=== PATIENT | male | born 1940 | race Caucasian/White ===

== ENCOUNTER → 2024-11-06 | Outpatient (CLI) | payer MEDICARE, BC, SELFPAY ==
--- NOTE | 2024-11-06 16:20 | XR_ITS ---
Examination: CT abdomen and pelvis without contrast. Coronal 3-D reconstructions. Sagittal 2-D reconstructions. Date and time of exam:November 06, 2024 1823 hrs. Indications: Supraumbilical pain with abdominal aortic bruit, clinical diagnosis abdominal aortic aneurysm, status post aortoiliac stent 5 years ago CTDI: vol (mGy): 7.05 DLP: (mGycm): 480 Technique: Axial images of the abdomen have been obtained, 3 mm slice thickness Intravenous contrast material has not been administered. Low dose protocols were performed. One or more of the following dose reduction techniques were used; automated exposure control, adjustment of the mA and/or KV according to patient size, use of iterative reconstruction technique. Findings: 12 mm right lobe liver cyst Cholelithiasis No splenomegaly Extensive mesenteric pericaval periaortic lymphadenopathy Aorto iliac endoluminal stent, transverse dimension infrarenal abdominal aorta 5.7 cm No bowel obstruction Urinary bladder intact Fat-containing hernia defects No significant prostatomegaly Advanced disc narrowing L5-S1 Impression: Cholelithiasis Status post aorto iliac endoluminal stent Infrarenal abdominal aortic aneurysm dilatation 5.7 cm compared to 5.[address] study October 09, 2021 Extensive mesenteric and abdominal lymphadenopathy, differential would include metastatic lymphadenopathy, Hodgkin's disease, non-Hodgkin's lymphoma Recommend PET CT scan staging follow-up
== END | disposition home or self-care (01) ==
PROVIDERS: PCP Family Medicine; Referring Provider Family Medicine; Visit Provider Family Medicine
DX: K80.20 Calculus of gallbladder without cholecystitis without obstruction (principal); I71.43 Infrarenal abdominal aortic aneurysm, without rupture; R59.0 Localized enlarged lymph nodes; Z98.890 Other specified postprocedural states
CPT/HCPCS: 74176

== ENCOUNTER → 2024-11-08 | Outpatient (CLI) | payer MEDICARE, BC, SELFPAY ==
[2024-11-08 11:07] LABS: Basophils % (Auto) 1 % (0-2.5); Eosinophils # (Auto) 0.2 Thou/mm3 (0.0-0.5); Eosinophils % (Auto) 3 % (0-10); Hematocrit 39.3 % (41.0-53.0); Hemoglobin 13.1 g/dL (13.5-16.0); Immature Granulocytes % (Auto) 0 % (0-0); Immature Granulocytes Auto 0.02 Thou/mm3 (0.00-0.00); Lymphocytes # (Auto) 0.8 Thou/mm3 (1.0-4.8); Lymphocytes % (Auto) 14 % (10-50); Mean Corpuscular HGB Conc 33.3 g/dl (31.0-37.0); Mean Corpuscular Volume 90 fL (80-100); Monocytes # (Auto) 0.6 Thou/mm3 (0.0-0.8); Monocytes % (Auto) 12 % (0-12); Neutrophils # (Auto) 3.9 Thou/mm3 (1.8-7.7); Neutrophils % (Auto) 70 % (37-80); Nucleated Red Blood Cell % 0 /100 WBC (0); Platelet Count 324 Thou/mm3 (140-440); Red Blood Count 4.36 Miln/mm3 (4.50-5.90); White Blood Count 5.6 Thou/mm3 (3.8-10.6)
[2024-11-08 11:20] LABS: Alanine Aminotransferase 10 U/L (10-49); Albumin, Serum 4.2 gm/dL (3.4-4.8); Albumin/Globulin Ratio 1.8 (1.2-2.2); Alkaline Phosphatase 69 U/L (46-116); Anion Gap 8 (7-16); Aspartate Amino Transferase 15 U/L (0-34); BUN/Creatinine Ratio 17 Ratio (12-20); Bilirubin,Total 0.5 mg/dL (0.3-1.2); Blood Urea Nitrogen 15 mg/dL (9-23); Calcium 9.3 mg/dL (8.3-10.6); Calcium (Corrected) 9.3 mg/dL (8.5-10.1); Carbon Dioxide 29.9 mMol/L (20.0-31.0); Chloride 100 mMol/L (98-107); Creatinine (Component) 0.9 mg/dL (0.6-1.3); Globulin 2.3 gm/dL (2.3-3.5); Glucose 162 mg/dL (74-106); Osmolality,Calculated 280 (275-295); Potassium 4.5 mMol/L (3.4-5.1); Sodium 138 mMol/L (136-145); Total Protein 6.5 gm/dL (5.7-8.2); eGFR > 60 See Note
[2024-11-11 07:06] LABS: PSA, Free <0.10 ng/mL; PSA, Total <0.1 ng/mL (< OR = 4.0)
== END | disposition home or self-care (01) ==
PROVIDERS: PCP Family Medicine; Referring Provider Family Medicine; Visit Provider Family Medicine
DX: C61 Malignant neoplasm of prostate (principal)
CPT/HCPCS: 36415; 80053; 84153; 84154; 85025

== ENCOUNTER 2024-11-11 05:25 | Emergency (ER) | payer MEDICARE, BC, SELFPAY ==
[2024-11-11] VITALS (8 sets, daily range): BP systolic 109–137; BP diastolic 61–84; PULSE 68–108; RESP 16–20; TEMP 36.6–37.1; O2SAT 83–98; BMI 27.9
--- NOTE | 2024-11-11 05:29 | EKG_ITS ---
[facility] Test Date: 2024-11-11 Pat Name: NANI MILLAN Department: Room: - Gender: Male [employer] Operator: : 1940 Requested By: Michelet Mahoney Order Number: [id number] Reading MD: Michelet Mahoney Measurements Intervals [place] Rate: 116 P: MS: QRS: 15 QRSD: 92 T: 15 QT: 325 QTc: 453 Interpretive Statements ATRIAL FIBRILLATION WITH RAPID VENTRICULAR RESPONSE MODERATE ST DEPRESSION [0.05+ mV ST DEPRESSION] Compared to ECG 07/22/2018 11:20:32 ST (T wave) deviation now present Sinus bradycardia no longer present Sinus arrhythmia no longer present /store/S0/[id number]/ecg/[id number].pdf
--- NOTE | 2024-11-11 07:49 | PC.NURSE ---
Dr. Whitmore is bedside talking with pt.
--- NOTE | 2024-11-11 07:56 | PD.EDADULT ---
ED General RME/HPI General Chief complaint: Dizziness Stated complaint: DIZZINESS Arrival date/time: 11/11/24 05:25 RME / HPI RME / HPI narrative: Patient is a 84 years old male with PMH of CAD s/p CABG, HLD, HTN, chronic vertigo, COPD presented to the [facility] due to worsening dizziness. He reported that since yesterday his vertigo got worse and did not respond to meclizine as before. He denies any precipitating factors. He denies any drugs or alcohol use. He used to use home oxygen but ran out of it and did not refill. He is seen by cardiology. He denies any weakness in his extremities, chest pain or SOB. He reports feeling nauseous from vertigo. Related Data Home Medications ?Medication ?Instructions ?Recorded ?Confirmed finasteride 5 mg tablet (Proscar) 5 mg PO QDAY #0 tabs 06/21/15 11/01/23 tamsulosin 0.4 mg capsule (Flomax) 0.8 mg PO QDAY ##0 06/21/15 11/01/23 atorvastatin 80 mg tablet 80 mg PO QDAY 07/22/18 11/01/23 clopidogrel 75 mg tablet 75 mg PO DAILY 11/01/23 11/01/23 fluticasone fur. 100 mcg-umeclid 1 inh inhalation QDAY 11/01/23 11/01/23 62.5 mcg-vilant 25 mcg inhalat.powder (Trelegy Ellipta) isosorbide mononitrate 30 mg 30 mg PO DAILY 11/01/23 11/01/23 tablet,extended release 24 hr metoprolol succinate 50 mg 50 mg PO DAILY 11/01/23 11/01/23 tablet,extended release 24 hr nitroglycerin 0.4 mg sublingual 0.4 mg buccal PRN PRN Chest Pain 11/01/23 11/01/23 tablet ranolazine 500 mg tablet,extended 1,000 mg PO DAILY 11/01/23 11/01/23 release,12 hr Previous Rx's ?Medication ?Instructions ?Recorded azithromycin 250 mg tablet See Rx Instructions PO .COMPLEX #6 11/01/23 (Zithromax Z-Luis) tabs metformin 500 mg tablet 500 mg PO QDAY #30 tabs 11/01/23 lorazepam 0.5 mg tablet (Ativan) 0.5 mg PO BID PRN dizziness or 11/11/24 vertigo #7 tabs meclizine 25 mg tablet 50 mg (2 x 25 mg) PO BID PRN 11/11/24 dizziness #14 tabs Allergies Allergy/AdvReac Type Severity Reaction Status Date / Time Penicillins Allergy Severe Vomiting Verified 07/22/18 08:29 Review of Systems Review of Systems Systems Reviewed: All systems reviewed, normal except as documented ED Exam Narrative Physical exam: Gen: Well-developed and well-nourished elderly male. HEENT: NCAT, PERRLA, EOMI, MMM, anicteric conjunctivae. CVS: normal S1 and S2. RRR. Holosystolic murmur best heard over aortic area. Resp: CTA B/L. No rhonchi, rales, crackles or wheezing. Abd: soft, midly tender in RUQ, non-distended. BS+ in all 4 quadrants. MSK: Good ROM in BUE & BLE. No edema or rash. Neuro: CN II-XII grossly intact. Strength 5/5 in BUE & BLE. Alert and oriented x3. Psych: appropriate mood and affect. Course Course Course Narrative: Patient was given scopolamine patch and meclizine 50 mg, one hour later he reported minimal improvement. He was then given Lorazepam 0.5 mg orally and his vertigo returned to baseline. He was able to walk across the ED with no assistance. Quality Measures none Orders Category Date Time Status Blood glucose [Bedside Blood Glucose] NOW Care 11/11/24 05:29 Completed EKG (ED ONLY) *Do not use* NOW Care 11/11/24 05:29 Completed EKG (ED Only) Stat Exams 11/11/24 05:29 Draft LORazepam [Ativan] Med 11/11/24 10:02 Discontinued 0.5 mg PO X1 ONE Meclizine HCl [Antivert] Med 11/11/24 07:33 Discontinued 25 mg PO X1 ONE Meclizine HCl [Antivert] Med 11/11/24 07:50 Discontinued 50 mg PO X1 ONE Scopolamine [Transderm-Scop Patch] Med 11/11/24 07:33 Discontinued 1 mg TOP X1 ONE Vital Signs Vital signs: Vital Signs Temperature 98.8 F 11/11/24 05:31 Pulse Rate 108 H 11/11/24 05:31 Respiratory Rate 18 11/11/24 05:31 Blood Pressure 109/61 11/11/24 05:31 Pulse Oximetry (%) 95 11/11/24 05:31 Oxygen Delivery Method Room Air 11/11/24 05:31 [facility] Patient data External records reviewed:: [facility] previous records Clinical information provided by:: patient Social determinants that could affect healthcare access:: none Patient has the following chronic illnesses:: COPD, was previously prescribed home oxygen but ran out of it and never refilled. His saturation on room air was suboptimal and home oxygen was delivered to the ED. Chronic vertigo, patient ambulates with no walker however has high risk of fall, walker was prescribed for him and given in the ED. How is presenting disease/condition affected by chronic disease/condition?: caused by Evaluation data The following diagnostics were reviewed and interpreted by me:: EKG tracing(s) Lab and/or radiology exams considered but not ordered:: CT head was not ordered due to clinical impression of peripheral vertigo and low suspicion for CVA. Interpretation Summary: MAT on EKG. Medications Medications considered but not ordered:: Zofran, promethazine Medication administrations:: Medication Administration History Discontinued Medications Lorazepam (Lorazepam 0.5 Mg Tablet) 0.5 mg PO X1 ONE Stop: 11/11/24 10:03 Last Admin: 11/11/24 10:30 Dose: 0.5 mg Documented By: ED Meclizine HCl (Meclizine Hcl 25 Mg Tablet) 25 mg PO X1 ONE Stop: 11/11/24 07:34 Last Admin: 11/11/24 08:36 Dose: Not Given Documented By: ED Non-Admin Reason: Duplicate Medication on eMAR Meclizine HCl (Meclizine Hcl 25 Mg Tablet) 50 mg PO X1 ONE Stop: 11/11/24 07:51 Last Admin: 11/11/24 08:36 Dose: 50 mg Documented By: ED Scopolamine (Scopolamine 1 Mg Tdsy) 1 mg TOP X1 ONE Stop: 11/11/24 07:34 Last Admin: 11/11/24 08:36 Dose: 1 mg Documented By: ED Scopolamine 1mg patch, Meclizine 50 mg PO, Lorazepam 0.5 mg PO. Consultations Consultation(s) initiated? (list below): No Diagnosis Differential Diagnosis ED Complaint MDM: CVA, chronic peripheral vertigo, BPPV Most likely diagnosis given after review of the tests above:: chronic peripheral vertigo, symptoms flair. Admission Indicated Admission indicated?: not indicated Explain why admission is indicated or not indicated:: Patient's condition returned to baseline after treatment, he was prescribed medications at home and was recommended to follow up with PCP and possibly with neurology to continue management of his chronic vertigo. Admission Request Was there a request for admission?: No Disposition Plan Disposition Plan: Discharge Discharge Attestation Discharge Attestation: The patient and all family members were given an opportunity to ask questions and understood the discharge instructions. Discharge instructions specifically effects, indications for sooner follow up or return to the emergency department, and the expected course of current diagnosis. Patient condition: Stable Medical Decision Making Differential Diagnosis Differential Diagnosis: CVA, chronic peripheral vertigo, BPPV Discharge Plan Plan Patient Disposition: HOME (Self Care) Prescriptions/Referrals Prescriptions/Med Rec: New lorazepam [Ativan] 0.5 mg tablet 0.5 mg PO BID MDD 1 mg PRN (Reason: dizziness or vertigo) Qty: 7 0RF meclizine 25 mg tablet 50 mg PO BID MDD 100 mg PRN (Reason: dizziness) Qty: 14 0RF No Action tamsulosin [Flomax] 0.4 MG capsule,extended release 24hr 0.8 mg PO QDAY Qty: 0 finasteride [Proscar] 5 MG tablet 5 mg PO QDAY Qty: 0 atorvastatin 80 mg Tablet 80 mg PO QDAY clopidogrel 75 mg tablet 75 mg PO DAILY Patient Comments: TAKE 1 TABLET BY MOUTH ONCE DAILY FOR 90 DAYS nitroglycerin 0.4 mg tablet, sublingual 0.4 mg BUCCAL PRN MDD 3 PRN (Reason: Chest Pain) Patient Comments: DISSOLVE ONE TABLET UNDER THE TONGUE NEEDED FOR CHEST PAIN. DO NOT EXCEED MORE THAN 3 TIMES IN A DAY FOR 25 DAYS. ranolazine 500 mg tablet extended release 12 hr 1,000 mg PO DAILY Patient Comments: TAKE 1 TABLET BY MOUTH TWICE DAILY Trelegy Ellipta 100-62.5-25 mcg Blister With Device 1 inh INHALATION QDAY metoprolol succinate 50 mg tablet extended release 24 hr 50 mg PO DAILY Patient Comments: TAKE 1 TABLET BY MOUTH ONCE DAILY isosorbide mononitrate 30 mg tablet extended release 24 hr 30 mg PO DAILY Patient Comments: TAKE 1 TABLET BY MOUTH ONCE DAILY IN THE MORNING azithromycin [Zithromax Z-Luis] 250 mg tablet See Rx Instructions PO .COMPLEX Qty: 6 0RF Rx Instructions: For 250 mg dose pack: take 500 mg today (day 1), then 250 mg for 4 days (days 2-5) metformin 500 mg tablet 500 mg PO QDAY Qty: 30 0RF Referrals: Jameson Tucker MD [Primary Care Provider] - In 1 week Problem List Clinical Impression: Vertigo Patient/Caregiver Discharge Instructions Discharge Activity: walk with walker only and wear oxygen at all times Education Materials: ED Dizziness, Uncertain Cause Additional Instructions: Take Ativan 1 tab as needed up to 2 times a day for dizziness. Take meclizine 50 mg as needed up to 2 times a day for dizziness. Follow up with PCP within 1 week. Consider neurology referral for dizziness management. Return to the ED if your symptoms worsen or you have new or concerning issues. Print Language: Bengali Stand Alone Forms: [employer] Award Info., Patient Portal Info Letter
[2024-11-11] MEDS: MECLIZINE HCL 25 MG TABLET 50 MG PO (08:36)
[2024-11-11] MEDS: SCOPOLAMINE 1 MG TDSY TOP (08:36)
--- NOTE | 2024-11-11 08:39 | PC.CC ---
Pt is discharged in a chronic stable state and has been treated optimally and has other respiratory needs. Oxygen has been ordered due to low sat and dizziness. Dizziness creates mobility limitation that significantly impairs ability to participate in the patients activities of daily living either in their entirety, or in a reasonable time frame. Also the patient is able to safely use the walker and the patient?s mobility is sufficiently resolved with the use of the walker and cane has been ruled out.
--- NOTE | 2024-11-11 08:40 | PC.NURSE ---
Pt. here from home to room 7, pt. states he is always dizzy and takes Meclizine 25 mg po PRN, pt. states it has not been working. Pt. 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 states in the last year it has changed and he has an appointment on Wednesday to see what the plan is for it. Pt. states he was on home O2 and thought he didn't need it., pt. states when he sleeps without O2 now his oxygen drops to 80%. Pt. is on on O2 now via NC at 3L and pt. O2 is 97%. Pt. tolerating well. Pt. requests hot tea, made and given to pt. Offered warm blanket and pt. states no thank you.
--- NOTE | 2024-11-11 09:00 | PC.NURSE ---
Pt. states he uses the RR with no issues, pt. states he had a BM yesterday.
[2024-11-11] MEDS: LORazepam 0.5 MG TABLET PO (10:30)
--- NOTE | 2024-11-11 11:11 | PC.NURSE ---
Kate in pt.'s room talking with pt. and showing pt. how to use his home O2.
--- NOTE | 2024-11-11 11:25 | PC.NURSE ---
Pt. walking around ER with Dr. Hansen, pt. tolerating well.
== END 2024-11-11 12:40 | disposition home or self-care (01) ==
PROVIDERS: Emergency Provider Emergency Medicine; PCP Family Medicine
DX: R42 Dizziness and giddiness (principal); I48.91 Unspecified atrial fibrillation
CPT/HCPCS: 93005; 99283; A9270

== ENCOUNTER → 2024-11-29 | Outpatient (CLI) | payer MEDICARE, BC, SELFPAY ==
[2024-11-29 11:39] LABS: Glucose Estimated Average 123 mg/dL (80-131); Hemoglobin A1C 5.9 % Hgb (4.8-6.0)
[2024-11-29 11:48] LABS: T4 (Thyroxine) 8.4 mcg/dL (4.5-10.9)
[2024-11-29 11:54] LABS: Creatinine MALB Rnd Ur 214 mg/dL (30-125); Microalbumin Creat Ratio 13 mg/gCrea (<30); Microalbumin, Random Urine 28 mg/L (0-300)
[2024-11-29 11:57] LABS: Alanine Aminotransferase 9 U/L (10-49); Albumin, Serum 3.9 gm/dL (3.4-4.8); Albumin/Globulin Ratio 1.6 (1.2-2.2); Alkaline Phosphatase 65 U/L (46-116); Anion Gap 9 (7-16); Aspartate Amino Transferase 16 U/L (0-34); BUN/Creatinine Ratio 14 Ratio (12-20); Bilirubin,Total 0.8 mg/dL (0.3-1.2); Blood Urea Nitrogen 13 mg/dL (9-23); Calcium 9.1 mg/dL (8.3-10.6); Calcium (Corrected) 9.2 mg/dL (8.5-10.1); Carbon Dioxide 32.3 mMol/L (20.0-31.0); Cardiac Risk Estimate 2.9 RATIO (4.0-6.7); Chloride 98 mMol/L (98-107); Cholesterol 85 mg/dL (132-200); Creatinine (Component) 0.9 mg/dL (0.6-1.3); Globulin 2.4 gm/dL (2.3-3.5); Glucose 151 mg/dL (74-106); HDL Cholesterol 29 mg/dL (40-60); LDL Cholesterol,Calculated 41 mg/dL (0-130); Osmolality,Calculated 280 (275-295); Potassium 3.7 mMol/L (3.4-5.1); Sodium 139 mMol/L (136-145); Thyroid Stimulating Hormone 2.25 uIU/mL (0.55-4.78); Total Protein 6.3 gm/dL (5.7-8.2); Triglycerides 75 mg/dL (30-150); eGFR > 60 See Note
== END | disposition home or self-care (01) ==
LOC: COPL 10:37
PROVIDERS: PCP Family Medicine; Referring Provider Family Medicine; Visit Provider Family Medicine
DX: E03.9 Hypothyroidism, unspecified (principal); E11.9 Type 2 diabetes mellitus without complications
CPT/HCPCS: 36415; 80053; 80061; 82043; 82570; 83036; 84436; 84443

== ENCOUNTER → 2024-12-11 | Outpatient (CLI) | payer MEDICARE, BC, SELFPAY ==
--- NOTE | 2024-12-11 10:00 | XR_ITS ---
Examination: MRI brain without intravenous contrast. Date and time of exam: December 11, 2024 1118 hours Comparison January 29, 2010 INDICATIONS: Increasing memory loss 15 years Technique: Multiple axial and sagittal images of the brain obtained. Siemens high-resolution 1.5 Sue short bore scanners utilized. Sagittal sections, T1-weighted, TR 500, TE 14, are performed. Axial sections proton-density and T2-weighted have been obtained. Inversion recovery axial images, TR 9, 260, TE 111, TI 2500. Diffusion weighted images, axial sections, TR 4800, TE 128, B value 1000 Axial sections, ADC map, TR 4800, TE 128 Findings: Enlargement of the sella turcica is not present. The optic chiasm and infundibular are not remarkable. Prepontine and interpeduncular cisterns are not enlarged. There is no localized enlargement of the medulla or andi. Fourth ventricle and cerebellar tonsils appear normal in position. No subacute area of hemorrhage density is seen. Mass in the cerebellopontine angle region is not evident. Globes symmetrical. Orbital musculature including medial lateral rectus muscles do not exhibit abnormality. Diffusion-weighted images demonstrate no focus of restricted diffusion. Increased white matter signal moderate Mass effect upon the ventricular system is not identified. Impression: Negative for acute hemorrhage mass effect or midline shift No acute infarct Moderate chronic microvascular white matter change
== END | disposition home or self-care (01) ==
LOC: SMRI 10:17
PROVIDERS: Referring Provider Family Medicine; Visit Provider Family Medicine
DX: R90.82 White matter disease, unspecified (principal)
CPT/HCPCS: 70551

== ENCOUNTER → 2024-12-12 | Outpatient (CLI) | payer MEDICARE, BC, SELFPAY ==
--- NOTE | 2024-12-12 15:30 | XR_ITS ---
EXAMINATION: PET/CT FUSION SKULL TO THIGH EXAM DATE AND TIME: December 12, [address] abdomen pelvis November 06, 2024, CT chest November 01, 2023 INDICATIONS: Diagnosis malignant neoplasm prostate, diagnosis lymphadenitis CTDI:vol (mGy) 5.34 DLP: (mGycm) 487.78 PROCEDURE: 17.2 mCi FDG was administered intravenously To allow for distribution and uptake of radiotracer, the patient was allowed to rest quietly in a shielded room. Imaging was performed on an integrated 16-slice PET/CT scanner, with scanning from the skull base to the mid thigh. Serum blood glucose at the time of the injection was measured 99 mg/dL. CT scanning was performed without oral or intravenous contrast material. FINDINGS: Head and Neck: There is no hamilton hypermetabolism in the neck. 8mm hypermetabolic right supraclavicular lymph node Chest: 6 mm hypermetabolic high right paratracheal lymph node 20 mm hypermetabolic right pretracheal lymph node Mediolateral dimension ascending thoracic aorta 5.1 cm, mediolateral dimension descending thoracic aorta 4 cm Abdomen and Pelvis: Extensive periaortic pericaval and mesenteric lymphadenopathy surrounding the abdominal aorta, numerous intensely hypermetabolic lymph nodes extending into the mesentery, the transverse dimension of the bulk of mesenteric adenopathy is 10 cm Infrarenal abdominal aortic aneurysm transverse dimension 5.6 cm Hypermetabolic sigmoid colon without definite mass within the sigmoid colon Musculoskeletal: Marrow uptake is within normal range. IMPRESSION: Thoracic abdominal aortic aneurysms as above 8mm right supraclavicular hypermetabolic lymph node 6 mm hypermetabolic high right paratracheal lymph node 20 mm hypermetabolic right pretracheal lymph node Extensive bulky para-aortic pericaval and mesenteric hypermetabolic lymphadenopathy
== END | disposition home or self-care (01) ==
PROVIDERS: PCP Family Medicine; Referring Provider Family Medicine; Visit Provider Family Medicine
DX: I71.60 Thoracoabdominal aortic aneurysm, without rupture, unspecified (principal); R59.1 Generalized enlarged lymph nodes; C61 Malignant neoplasm of prostate
CPT/HCPCS: 78815; A9552

== ENCOUNTER → 2024-12-19 | Outpatient (CLI) | payer MEDICARE, BC, SELFPAY ==
[2024-12-19 10:47] LABS: Basophils % (Auto) 0 % (0-2.5); Eosinophils # (Auto) 0.1 Thou/mm3 (0.0-0.5); Eosinophils % (Auto) 1 % (0-10); Hematocrit 35.7 % (41.0-53.0); Hemoglobin 11.4 g/dL (13.5-16.0); Immature Granulocytes % (Auto) 1 % (0-0); Immature Granulocytes Auto 0.08 Thou/mm3 (0.00-0.00); Lymphocytes # (Auto) 0.6 Thou/mm3 (1.0-4.8); Lymphocytes % (Auto) 8 % (10-50); Mean Corpuscular HGB Conc 31.9 g/dl (31.0-37.0); Mean Corpuscular Hemoglobin 28.4 pg (25.0-35.0); Mean Corpuscular Volume 89 fL (80-100); Monocytes # (Auto) 0.8 Thou/mm3 (0.0-0.8); Monocytes % (Auto) 11 % (0-12); Neutrophils # (Auto) 5.3 Thou/mm3 (1.8-7.7); Neutrophils % (Auto) 78 % (37-80); Nucleated Red Blood Cell % 0 /100 WBC (0); Platelet Count 327 Thou/mm3 (140-440); RDW Standard Deviation 49.4 fL (35.1-43.9); Red Blood Count 4.01 Miln/mm3 (4.50-5.90); White Blood Count 6.8 Thou/mm3 (3.8-10.6)
[2024-12-19 11:09] LABS: Carcinoembryonic Antigen 1.3 ng/mL (0.0-5.0)
[2024-12-19 12:19] LABS: Alanine Aminotransferase 8 U/L (10-49); Albumin, Serum 3.6 gm/dL (3.4-4.8); Albumin/Globulin Ratio 1.6 (1.2-2.2); Alkaline Phosphatase 67 U/L (46-116); Anion Gap 9 (7-16); Aspartate Amino Transferase 18 U/L (0-34); BUN/Creatinine Ratio 16 Ratio (12-20); Blood Urea Nitrogen 13 mg/dL (9-23); Calcium 8.6 mg/dL (8.3-10.6); Calcium (Corrected) 8.9 mg/dL (8.5-10.1); Carbon Dioxide 30.6 mMol/L (20.0-31.0); Chloride 100 mMol/L (98-107); Creatinine (Component) 0.8 mg/dL (0.6-1.3); Globulin 2.2 gm/dL (2.3-3.5); Glucose 163 mg/dL (74-106); Osmolality,Calculated 283 (275-295); Potassium 3.6 mMol/L (3.4-5.1); Sodium 140 mMol/L (136-145); Total Protein 5.8 gm/dL (5.7-8.2); eGFR > 60 See Note
[2024-12-22 06:56] LABS: CA 19-9 Antigen* 5 U/mL (<34)
== END | disposition home or self-care (01) ==
LOC: SCTO 10:07
PROVIDERS: PCP Family Medicine; Referring Provider Radiology Therapeutic Radiology; Visit Provider Radiology Therapeutic Radiology
DX: C77.8 Secondary and unspecified malignant neoplasm of lymph nodes of multiple regions (principal)
CPT/HCPCS: 36415; 80053; 82378; 85025; 86301

== ENCOUNTER 2024-12-23 09:52 | Inpatient (IN) | payer MEDICARE, BC, SELFPAY ==
[2024-12-23] VITALS (9 sets, daily range): BP systolic 107–129; BP diastolic 63–81; PULSE 71–90; RESP 16–94; TEMP 36.4–37.1; O2SAT 93–96; BMI 24.3; BMI 19.7
--- NOTE | 2024-12-23 10:31 | PD.EDRME ---
Rapid Medical Screening Exam E Arrival date/time: 12/23/24 09:52 This is an 84-year-old male just given my water just to see what is going on with him and I states is fine just yeah that comes in with complaints of diarrhea. Patient currently being worked up for cancer with his primary provider. Patient has diffuse abdominal pain. Patient recently had a PET scan that close then lit up in areas in his thoracic cavity his clavicle area and in his abdomen and throat. Patient states that his primary provider is Dr Tucker. Patient was instructed by his primary provider to come to the emergency room to get IV fluids. Patient states that he is not eating very much because he has no appetite. Patient states that as soon as he tries to eat anything he has really bad diarrhea. Patient denies any nausea vomiting fever. Patient has history of open heart surgery in 2015, hyperlipidemia, high blood pressure I have greeted and performed a focused initial assessment of this patient. Initial appropriate labs ordered at this time. A comprehensive ED assessment and evaluation of the patient and analysis of all test and completion of medical decision making process will be conducted by additional ED provider. Chief Complaint: Nausea/Vomiting/Diarrhea Time Seen by Provider: 12/23/24 09:58 Vital signs: Vital Signs Temperature 98.1 F 12/23/24 10:14 Pulse Rate 90 12/23/24 10:14 Respiratory Rate 18 12/23/24 10:14 Blood Pressure 107/72 12/23/24 10:14 Pulse Oximetry (%) 96 12/23/24 10:14 Oxygen Delivery Method Room Air 12/23/24 10:14
[2024-12-23 10:57] LABS: Basophils % (Auto) 1 % (0-2.5); Eosinophils # (Auto) 0.1 Thou/mm3 (0.0-0.5); Eosinophils % (Auto) 2 % (0-10); Hematocrit 33.2 % (41.0-53.0); Hemoglobin 10.9 g/dL (13.5-16.0); Immature Granulocytes % (Auto) 1 % (0-0); Immature Granulocytes Auto 0.03 Thou/mm3 (0.00-0.00); Lymphocytes # (Auto) 0.6 Thou/mm3 (1.0-4.8); Lymphocytes % (Auto) 8 % (10-50); Mean Corpuscular HGB Conc 32.8 g/dl (31.0-37.0); Mean Corpuscular Hemoglobin 28.9 pg (25.0-35.0); Mean Corpuscular Volume 88 fL (80-100); Monocytes # (Auto) 0.7 Thou/mm3 (0.0-0.8); Monocytes % (Auto) 11 % (0-12); Neutrophils # (Auto) 5.2 Thou/mm3 (1.8-7.7); Neutrophils % (Auto) 78 % (37-80); Nucleated Red Blood Cell % 0 /100 WBC (0); Platelet Count 293 Thou/mm3 (140-440); RDW Standard Deviation 48.7 fL (35.1-43.9); Red Blood Count 3.77 Miln/mm3 (4.50-5.90); White Blood Count 6.6 Thou/mm3 (3.8-10.6)
[2024-12-23 11:09] LABS: INR 1.2 (0.9-1.3); Prothrombin Time 12.7 Seconds (9.0-12.2)
[2024-12-23 11:25] LABS: Alanine Aminotransferase 8 U/L (10-49); Albumin, Serum 3.7 gm/dL (3.4-4.8); Albumin/Globulin Ratio 1.5 (1.2-2.2); Alkaline Phosphatase 68 U/L (46-116); Anion Gap 6 (7-16); Aspartate Amino Transferase 23 U/L (0-34); BUN/Creatinine Ratio 17 Ratio (12-20); Bilirubin,Total 1.2 mg/dL (0.3-1.2); Blood Urea Nitrogen 12 mg/dL (9-23); C-Reactive Protein 8.8 mg/dL (0.0-0.9); Calcium 8.7 mg/dL (8.3-10.6); Calcium (Corrected) 8.9 mg/dL (8.5-10.1); Carbon Dioxide 30.7 mMol/L (20.0-31.0); Chloride 100 mMol/L (98-107); Creatinine (Component) 0.7 mg/dL (0.6-1.3); Estimated Creatinine Clearance 73.4 mL/min (>60); Globulin 2.5 gm/dL (2.3-3.5); Glucose 121 mg/dL (74-106); Lipase 25 U/L (12-53); Osmolality,Calculated 274 (275-295); Potassium 3.3 mMol/L (3.4-5.1); Sodium 137 mMol/L (136-145); Total Protein 6.2 gm/dL (5.7-8.2); eGFR > 60 See Note
--- NOTE | 2024-12-23 14:29 | EDNOTE_ITS ---
<Statement entered by Juliana Woody MD - 12/24/24 15:22> As co-signing physician, I was present and available for consult prn. I concur with the plan and care as documented by the midlevel provider. Nausea/Vomit./Diarrhea-RME/HPI General Chief complaint: Nausea/Vomiting/Diarrhea Stated complaint: VOMITING X4 WKS, AMS, WEAKNESS Time Seen by Provider: 12/23/24 09:58 Arrival date/time: 12/23/24 09:52 RME / HPI RME / HPI Narrative: 84-year-old male patient with significant history of hyperlipidemia, hypertension, prostate cancer in the past, status post chemotherapy, currently PSA is undetectable, currently being worked up for possible metastatic cancer, lymphoma or non-Hodgkin lymphoma, pending biopsy. Patient was seen by Dr. Padilla last week, and was waiting for CT-guided biopsy. Patient's symptoms this been ongoing for the last 3 to 4 months as weight loss, abdominal pain, no appetite, nausea, and vomiting. For the last 3 weeks patient is not eating very much because he has no appetite. He told me that every time he tries to eat something he will develop diarrhea right away. Patient denies any fever. Denies any other complaints. Patient called her PCP Dr Tucker, and was advised to go to the emergency room to to received IV fluids. Related Data Home Medications ?Medication ?Instructions ?Recorded ?Confirmed finasteride 5 mg tablet (Proscar) 5 mg PO QDAY #0 tabs 06/21/15 11/01/23 tamsulosin 0.4 mg capsule (Flomax) 0.8 mg PO QDAY ##0 06/21/15 11/01/23 atorvastatin 80 mg tablet 80 mg PO QDAY 07/22/1811/01 clopidogrel 75 mg tablet 75 mg PO DAILY 11/01/2310/14 fluticasone fur. 100 mcg-umeclid 1 inh inhalation QDAY 11/01/23 11/01/23 62.5 mcg-vilant 25 mcg inhalat.powder (Trelegy Ellipta) isosorbide mononitrate 30 mg 30 mg PO DAILY 11/01/23 0 11/01/23 tablet,extended release 24 hr metoprolol succinate 50 mg 50 mg PO DAILY 11/01/23 tablet,extended release 24 hr nitroglycerin 0.4 mg sublingual 0.4 mg buccal PRN PRN Chest Pain 11/01/23 11/01/23 tablet ranolazine 500 mg tablet,extended 1,000 mg PO DAILY 11/01/23 release,12 hr Previous Rx's ?Medication ?Instructions ?Recorded azithromycin 250 mg tablet See Rx Instructions PO .COM PLEX #6 11/01/23 (Zithromax Z-Luis) tabs metformin 500 mg tablet 500 mg PO QDAY #30 tabs 10/14 06/06 lorazepam 0.5 mg tablet (Ativan) 0.5 mg PO BID PRN diz ziness or 11/11/24 vertigo #7 tabs meclizine 25 mg tablet 50 mg (2 x 25 mg) PO BID PRN 11/11/24 dizziness #14 tabs Allergies Allergy/AdvReac Type Severity Reaction Status Date / Time Penicillins Allergy Severe Vomiting Verified 12/23/24 09:55 Review of Systems Review of Systems Narrative Review of Systems: Review of system reviewed and within normal limits except mentioned in HPI ED Exam Narrative Physical exam: VITAL SIGNS: Reviewed. GENERAL APPEARANCE: Alert and interactive, follows commands, no acute distress, HEAD AND FACE: Non-traumatic. ENT: PERRL, pink conjunctivitis, eyelid no trauma, Mucous membrane dry NECK: Supple, nontender, no nuchal rigidity. CHEST: No tenderness, no crepitus, no paradoxical movement, no retractions. LUNGS: Clear, well ventilated, symmetric, no rales, no wheezing, no ronchi, no stridor, good breath sounds bilaterally. HEART: Regular rate, regular rhythm, no murmur, no gallops. ABDOMEN: Soft, positive bowel sounds, nondistended, no guarding, nontender, no rebound, no masses, RECTAL: Deferred. GENITAL: Deferred. NEUROLOGICAL: Gross motor function intact sensory function intact, Appropriate for age. MUSCULOSKELETAL: low back nontender, full range of motion. EXTREMITIES: Nontender, full range of motion. SKIN: Color pink, dry, no rash, no lacerations, no abrasions, no contusions. LYMPHATICS: Deferred. Course Quality Measures none Orders Category Date Time Status COVID-19 Screening Questionnaire NOW Care 12/23/24 16:43 Active Decision to Admit X1 Care 12/23/24 16:43 Active Insert IV NOW Care 12/23/24 15:08 Active Consult to Oncology Stat Cons 12/23/24 16:19 Ordered CBC Stat Lab 12/23/24 10:44 Completed CRP [C-Reactive Protein] Stat Lab 12/23/24 10:44 Completed Comprehensive Metabolic Panel Stat Lab 12/23/24 10:44 Completed Lipase Stat Lab 12/23/24 10:44 Completed PT [Prothrombin Time with INR] Stat Lab 12/23/24 10:44 Completed Type and Screen Stat Lab 12/23/24 10:44 Completed Urinalysis, C/S if Indicated Stat Lab 12/23/24 15:38 Completed Morphine Inj Med 12/23/24 14:23 Discontinued 2 mg IVP X1 ONE Ondansetron Inj [Zofran Inj] Med 12/23/24 14:23 Discontinued 4 mg IV X1 ONE Ringers Lactated 1000 ml [Lactated Ringers] 1,000 ml Med 12/23/24 14:23 Discontinued IV 999 mls/hr Ringers Lactated 1000 ml [Lactated Ringers] 1,000 ml Med 12/23/24 15:26 Discontinued IV 999 mls/hr Vital Signs Vital signs: Vital Signs Temperature 98.1 F 12/23/24 10:14 Pulse Rate 90 12/23/24 10:14 Respiratory Rate 18 12/23/24 10:14 Blood Pressure 107/72 12/23/24 10:14 Pulse Oximetry (%) 96 12/23/24 10:14 Oxygen Delivery Method Room Air 12/23/24 10:14 Nausea/Vomiting/Diarrhea MDM Narrative MDM Narrative:: 84-year-old male patient with significant history of hyperlipidemia, hypertension, prostate cancer in the past, status post chemotherapy, currently P SA is undetectable, currently being worked up for possible metastatic cancer, lymphoma or non-Hodgkin lymphoma, pending biopsy. Patient was seen by Dr. Padilla last week, and was waiting for CT-guided biopsy. Patient's symptoms this been ongoing for the last 3 to 4 months as weight loss, abdominal pain, no appetite, nausea, and vomiting. For the last 3 weeks patient is not eating very much because he has no appetite. He told me that every time he tries to eat something he will develop diarrhea right away. Patient denies any fever. Denies any other complaints. Patient called her PCP Dr Caitlin, and was advised to go to the emergency room to to received IV fluids. Patient's laboratory workup all came back with slight anemia of 10.9 and hematocrit of 33.2. Potassium was noted to be 3.3. CRP was noted to be 8.8. Urinalysis no UTI I was able to talk to Dr. Padilla, patient's oncologist, who told me to admit the patient for CT-guided biopsy this coming Wednesday. Plan of care discussed with the patient who is very happy that he will get admitted so that he can have biopsy soon. Patient data External records reviewed:: None Clinical information provided by:: patient Social determinants that could affect healthcare access:: none Patient has the following chronic illnesses:: None How is presenting disease/condition affected by chronic disease/condition?: exacerbated by Evaluation data The following diagnostics were reviewed and interpreted by me:: lab results Lab and/or radiology exams considered but not ordered:: None Interpretation Summary: See results in MDM Medications / Prescriptions Medications / Prescriptions considered but not ordered:: None Medication administrations:: Medication Administration History Discontinued Medications Lactated Ringer's (Lactated Ringers) 1,000 mls @ 999 mls/hr IV .Q1H1M ONE Stop: 12/23/24 15:23 Last Infusion: 12/23/24 15:49 Dose: Infused Documented By: Admin: 12/23/24 15:09 Dose: 999 mls/hr Documented By: VALERIE Lactated Ringer's (Lactated Ringers) 1,000 mls @ 999 mls/hr IV .Q1H1M ONE Stop: 12/23/24 16:26 Last Infusion: 12/23/24 17:07 Dose: Infused Documented By: Admin: 12/23/24 15:55 Dose: 999 mls/hr Documented By: VALERIE Morphine Sulfate (Morphine Sulf Inj 10 Mg/Ml Vial) 2 mg IVP X1 ONE Stop: 12/23/24 14:24 Last Admin: 12/23/24 15:11 Dose: 2 mg Documented By: VALERIE Ondansetron HCl (Ondansetron Inj 2 Mg/Ml Inj 2 Ml) 4 mg IV X1 ONE; Protocol Stop: 12/23/24 14:24 Last Admin: 12/23/24 15:09 Dose: 4 mg Documented By: VALERIE IV fluids, Zofran and morphine Consultations Consultation(s) initiated? (list below): Yes Consultation #1 (Physician, Specialty, Details): Dr. Valerie Duckworth, oncologist, thank you Dr. Padilla Diagnosis Nausea Differential Diagnosis: dehydration and other (Failure thrive, suspect malignancy) Most likely diagnosis given after review of the tests above:: Failure to thrive, suspect malignancy pending biopsy Admission Indicated Admission indicated?: indicated Admission Request Was there a request for admission?: Yes Admission Attestation Admission request attestation: Discussed case with [Dr Carrillo] from Hospitalist service regarding admission. Discussed patients ED course, exam findings, labs, and radiology results. The Hospitalist [agrees] to accept the patient for admission. Disposition Plan Disposition Plan: Admit Discharge Plan Plan Patient Disposition: Admit Acute Care w/in Hospital Disposition Comment: Stable Prescriptions/Referrals Prescriptions/Med Rec: No Action tamsulosin [Flomax] 0.4 MG capsule,extended release 24hr 0.8 mg PO QDAY Qty: 0 finasteride [Proscar] 5 MG tablet 5 mg PO QDAY Qty: 0 atorvastatin 80 mg Tablet 80 mg PO QDAY clopidogrel 75 mg tablet 75 mg PO DAILY Patient Comments: TAKE 1 TABLET BY MOUTH ONCE DAILY FOR 90 DAYS nitroglycerin 0.4 mg tablet, sublingual 0.4 mg BUCCAL PRN MDD 3 PRN (Reason: Chest Pain) Patient Comments: DISSOLVE ONE TABLET UNDER THE TONGUE NEEDED FOR CHEST PAIN. DO NOT EXCEED MORE THAN 3 TIMES IN A DAY FOR 25 DAYS. ranolazine 500 mg tablet extended release 12 hr 1,000 mg PO DAILY Patient Comments: TAKE 1 TABLET BY MOUTH TWICE DAILY Trelegy Ellipta 100-62.5-25 mcg Blister With Device 1 inh INHALATION QDAY metoprolol succinate 50 mg tablet extended release 24 hr 50 mg PO DAILY Patient Comments: TAKE 1 TABLET BY MOUTH ONCE DAILY isosorbide mononitrate 30 mg tablet extended release 24 hr 30 mg PO DAILY Patient Comments: TAKE 1 TABLET BY MOUTH ONCE DAILY IN THE MORNING azithromycin [Zithromax Z-Luis] 250 mg tablet See Rx Instructions PO .COMPLEX Qty: 6 0RF Rx Instructions: For 250 mg dose pack: take 500 mg today (day 1), then 250 mg for 4 days (days 2-5) metformin 500 mg tablet 500 mg PO QDAY Qty: 30 0RF lorazepam [Ativan] 0.5 mg tablet 0.5 mg PO BID MDD 1 mg PRN (Reason: dizziness or vertigo) Qty: 7 0RF meclizine 25 mg tablet 50 mg PO BID MDD 100 mg PRN (Reason: dizziness) Qty: 14 0RF Referrals: Jameson Tucker MD [Primary Care Provider] - In 1 week Problem List Clinical Impression: Adult failure to thrive Patient/Caregiver Discharge Instructions Print Language: [place]an Stand Alone Forms: [employer] Award Info., Patient Portal Info Letter
[2024-12-23] MEDS: ONDANSETRON INJ 2 MG/ML INJ 2 ML 4 MG IV (15:09)
[2024-12-23] MEDS: RINGERS LACTATED 1000 ML 1,000 ML 999 ML IV ×2 (15:09→15:55)
[2024-12-23] MEDS: MORPHINE SULF INJ 10 MG/ML VIAL 2 MG IVP (15:11)
[2024-12-23 15:45] LABS: Collection Type, Urine Voided
[2024-12-23 15:50] LABS: Bilirubin,Urine Negative (Negative); Blood,Urine Negative (Negative); Clarity,Urine Clear (Clear/Hazy); Color,Urine Yellow (Lt Yel-Yel); Culture Indicated,Urine Not Indicated; Glucose, Urine Negative (Negative); Ketones,Urine Negative (Negative); Leukocyte Esterase,Urine Negative (Negative); Nitrite,Urine Negative (Negative); PH,Urine 6.5 (5.0-7.0); Protein,Urine Negative (Neg - Trace); RBC,Urine 1 /hpf (0-3); Specific Gravity,Urine 1.011 (1.001-1.035); Squamous Epithelial Cell,Urine < 1 /hpf (0-5); Urobilinogen,Urine Negative mg/dL (0.0-1.0); WBC,Urine 1 /hpf (0-5)
--- NOTE | 2024-12-23 18:30 | PD.RESHP ---
Documentation for date of: 12/23/24 HPI History of Present Illness Chief complaint: Poor p.o. intake, unintentional weight loss History of present illness: Mr. Johnston is a 84-year-old male with past medical history of coronary artery disease status post CABG, hyperlipidemia, hypertension, chronic vertigo, COPD, prostate cancer status post chemotherapy who presented to [facility] emergency department on with a chief complaint of diarrhea. Patient reported that he has been having diarrhea for the last month, reports having poor appetite decreased p.o. intake and significant unintentional weight loss of about 20 pounds in the last 1 month. Patient complains of being unable to keep food down, reports that he is barely able to eat anything, reports having diarrhea immediately after consumption of food. He also complains of night sweats on and off, denies any fevers. Patient reports that he was referred from his primary care physician Dr. Tucker to for workup had CT abdomen pelvis revealing cholelithiasis, infrarenal AAA and extensive mesenteric abdominal lymphadenopathy suggestive of lymphoma. Patient was evaluated by Dr. Padilla and had a PET scan which revealed hypermetabolic adenopathy involving periodic pericaval mesenteric areas along the right peritracheal high right paratracheal and right supraclavicular node. Patient did have unremarkable PSA and workup outpatient. ED Course: ED Vitals: ED vitals significant for on presentation blood pressure 107/72, heart rate 90, respirate rate 18, temp 98.1, O2 sat 96 on room air ED Labs: ED labs on presentation show RBC 3.77, hemoglobin 10.9, hematocrit 33.2, potassium 3.3, chloride 100, bicarb 30.7, creatinine 0.7, GFR more than 60, glucose 121, CRP 8.8 ED Imaging: No imaging done in ED ED Treatment:Patient was given LR 1 L bolus, Zofran 4 mg x 1, morphine 2 mg x 1 another LR liter bolus in the emergency department Review of Systems Review of Systems Narrative Review of Systems: ROS: -CONSTITUTIONAL: Positive for weight loss and chills. Denies fever. -HEENT: Denies changes in vision and hearing. -RESPIRATORY: Denies SOB and cough. -CV: Denies palpitations and Chest Pain. -GI: Denies abdominal pain, nausea, vomiting,constipation and positive for diarrhea and significant weight loss. -: Denies dysuria and urinary frequency. -MSK: Denies myalgia and joint pain. -SKIN: Denies rash and pruritus. -NEUROLOGICAL: Denies headache and syncope. -PSYCHIATRIC: Denies recent changes in mood. Denies anxiety and depression. Past Medical History Past Medical History Comments PMH COMMENT: PMH: Positive for coronary artery disease status post CABG, hyperlipidemia, hypertension, chronic vertigo, COPD, prostate cancer status post chemotherapy PSHx: Allergies: Penicillin?vomiting Social history: -Smoking: Positive for smoking for about 4 years in the past -Alcohol Use: Denies -Illicit Drug Use: Denies -Occupation: Retired, [employer]. Family History: Positive for family history of lung cancer in father and skin cancer in mother. Exam Vital Signs Temp Pulse Resp BP Pulse Ox O2 Del Method 98.1 F 88 16 129/81 95 Room Air 12/23/24 15:59 12/23/24 15:59 12/23/24 15:59 12/23/24 15:59 12/23/24 15:59 12/23/24 15:59 Narrative Exam Physical Exam General: Awake and in no acute distress. Conversational and non-toxic appearing. HEENT: Normocephalic, atraumatic, mucous membranes moist. Heart: Regular rate and rhythm, no murmurs. Lungs: Clear to auscultation with no wheezing or crackles. Abdomen: Soft, nondistended, nontender, positive bowel sounds. ?No guarding or rebound tenderness. Neurologic: Alert and oriented x3, no gross neurological deficit, and patient able to move all 4 extremities. Extremities: No edema. Skin: No rash or ecchymoses. Results: Labs 12/26/24 05:18 12/26/24 05:18 Labs: Short CBC 12/23/24 Range/Units 10:44 WBC 6.6 (3.8-10.6) Thou/mm3 Hgb 10.9 L (13.5-16.0) g/dL Hct 33.2 L (41.0-53.0) % Plt Count 293 D (140-440) Thou/mm3 BMP 12/23/24 10:44 Sodium 137 Potassium 3.3 L Chloride 100 Carbon Dioxide 30.7 BUN 12 Creatinine 0.7 Glucose 121 H Calcium 8.7 Liver Function 12/23/24 Range/Units 10:44 Total Bilirubin 1.2 (0.3-1.2) mg/dL AST 23 (0-34) U/L ALT 8 L (10-49) U/L Alkaline Phosphatase 68 (46-116) U/L Albumin 3.7 (3.4-4.8) gm/dL Urine 12/23/24 Range/Units 15:38 Urine Color Yellow (Lt Yel-Yel) Urine Clarity Clear (Clear/Hazy) Urine pH 6.5 (5.0-7.0) Ur Specific [place] 1.011 (1.001-1.035) Urine Protein Negative (Neg - Trace) Urine Glucose (UA) Negative (Negative) Quality Measures Quality Measures none Advance care planning discussed with:: patient Medications Home Medications and Allergies Home Medications ?Medication ?Instructions ?Recorded ?Confirmed ?Type finasteride 5 mg tablet (Proscar) 5 mg PO QDAY #0 tabs 06/21/15 12/23/24 History tamsulosin 0.4 mg capsule (Flomax) 0.8 mg PO QDAY ##0 06/21/15 12/23/24 History atorvastatin 80 mg tablet 80 mg PO QDAY 07/22/18 12/23/24 History clopidogrel 75 mg tablet 75 mg PO DAILY 11/01/23 12/23/24 History metoprolol succinate 50 mg 50 mg PO DAILY 11/01/23 12/23/24 History tablet,extended release 24 hr nitroglycerin 0.4 mg sublingual 0.4 mg buccal PRN PRN Chest Pain 11/01/23 12/26/24 History tablet ranolazine 500 mg tablet,extended 1,000 mg PO DAILY 11/01/23 12/23/24 History release,12 hr ezetimibe 10 mg tablet 10 mg PO QDAY 12/23/24 12/23/24 History gabapentin 300 mg capsule 300 mg PO TID 12/23/24 12/23/24 History hydrocodone 5 mg-acetaminophen 325 1 tab PO Q6H PRN pain 12/23/24 12/23/24 History mg tablet Allergies Allergy/AdvReac Type Severity Reaction Status Date / Time Penicillins Allergy Severe Vomiting Verified 12/23/24 09:55 Visit Medications Acetaminophen (Acetaminophen 325 Mg Tablet) 650 mg PO Q6H PRN PRN Reason: Mild Pain (1-3) & Fever >101.5 Stop: 01/22/25 18:10 Hydrocodone Bitart/Acetaminophen (Hydrocodone/Apap 5/325 Tablet) 1 tab PO Q6HR PRN PRN Reason: PAIN SCALE 4-10(Mod-Sev Stop: 12/28/24 18:24 Albuterol/Ipratropium (Albuterol/Ipratropium (Duoneb) Rt Fanny 3 Ml Nebu) 3 ml INH Q4HRRT PRN PRN Reason: SOB/Wheeze Stop: 01/22/25 18:59 Finasteride (Finasteride 5 Mg Tablet) 5 mg PO QDAY [facility] Stop: 01/23/25 08:59 Gabapentin (Gabapentin 100 Mg Capsule) 300 mg PO TID [facility] Stop: 01/22/25 21:59 Heparin Sodium (Porcine) (Heparin Sod Inj 5000 Unit/Ml Vial) 5,000 unit SC Q12HR PEPPER Stop: 01/06/25 18:29 Lactated Ringer's (Lactated Ringers) 1,000 mls @ 70 mls/hr IV .[id number] PEPPER Stop: 01/22/25 18:14 Ondansetron HCl (Ondansetron Inj 2 Mg/Ml Inj 2 Ml) 4 mg IV Q6H PRN; Protocol PRN Reason: NAUSEA OR VOMITING Stop: 01/22/25 18:10 Discontinued Medications Lactated Ringer's (Lactated Ringers) 1,000 mls @ 999 mls/hr IV .Q1H1M ONE Stop: 12/23/24 15:23 Last Infusion: 12/23/24 15:49 Dose: Infused Lactated Ringer's (Lactated Ringers) 1,000 mls @ 999 mls/hr IV .Q1H1M ONE Stop: 12/23/24 16:26 Last Infusion: 12/23/24 17:07 Dose: Infused Morphine Sulfate (Morphine Sulf Inj 10 Mg/Ml Vial) 2 mg IVP X1 ONE Stop: 12/23/24 14:24 Last Admin: 12/23/24 15:11 Dose: 2 mg Ondansetron HCl (Ondansetron Inj 2 Mg/Ml Inj 2 Ml) 4 mg IV X1 ONE; Protocol Stop: 12/23/24 14:24 Last Admin: 12/23/24 15:09 Dose: 4 mg Potassium Chloride (Potassium Chloride 20 Meq Tabcr) 40 meq PO X1 ONE Stop: 12/23/24 18:23 Assessment & Plan Plan Assessment and plan: Summary: Mr. Johnston is a 84-year-old male with past medical history of coronary artery disease status post CABG, hyperlipidemia, hypertension, chronic vertigo, COPD, prostate cancer status post chemotherapy who presented to [facility] emergency department on with a chief complaint of diarrhea. Patient reported that he has been having diarrhea for the last month, reports having poor appetite decreased p.o. intake and significant unintentional weight loss of about 20 pounds in the last 1 month. Patient is admitted to hospital for further workup. #Chronic diarrhea #Unintentional weight loss #Poor p.o. intake Patient has chronic diarrhea for the last month, reports having poor appetite decreased p.o. intake and significant unintentional weight loss of about 20 pounds in the last 1 month. Was given 2 L bolus in ED, CRP 8.8 Plan: -IV Maintenance fluid -Stool WBC -Stool Culture -Follow ESR -Cardiac diet, monitor Bowel movement -Will consider supervisor accounts receivable consult in AM -Zofran PRN for nausea #Electrolyte abnormality #Hypokalemia Potassium 3.3 on presentation -Correct and replace electolytes as needed #Acute kidney injury BUN 12, Cr 0.7, GFR >60, possible LAUREN considering significant weight loss/muscle loss -IV Maintenance fluid -Avoid Nephrotoxic agents -Follow renal panel in AM #Thoracic aortic aneurysm #Infrarenal abdominal aorta aneurysm CT abdomen pelvis 11/06/2024 shows aortoiliac endoluminal stent, infrarenal abdominal aorta aneurysm dilatation 5.7 cm PET scan shows medial atrial dimension ascending thoracic aorta 5.1 cm, medial atrial dimension descending thoracic aorta 4 cm - Patient follows Dr. Johnson tar distillation supervisor outpatient - Maintain strict blood pressure control #8 mm right supraclavicular hypermetabolic lymph node #6 mm hypermetabolic high right paratracheal lymph node #20 mm hypermetabolic right pretracheal lymph node #Extensive bulky para-aortic pericaval and mesenteric hypermetabolic lymphadenopathy. #History of prostate cancer status postchemotherapy Concern of lymphoma - Oncology consulted, appreciate recommendations #Hypertension #Hyperlipidemia #Coronary artery disease status post CABG #COPD Pending Med rec. Blood Pressure soft, will monitor Duoneb PRN DVT prophylaxis: Heparin GI prophylaxis: Not indicated Diet:Cardiac Lines: Peripheral IV Code status: Full Code Case discussed with Attending Dr. Walton. Zuleika Tian PGY1 Disclaimer: This note was dictated by speech recognition. Minor errors in professional driver may be present due to voice recognition software. Attending Provider Attestation/Addendum Patient seen and examined at bedside with resident. Agree with assessment and plan as dictated above. Admit patient for further management of dehydration and unintentional weight loss, chronic diarrhea. Channing Walton MD
[2024-12-23] MEDS: POTASSIUM CHLORIDE 20 mEq TABCR 40 MEQ PO (18:40)
[2024-12-23] MEDS: RINGERS LACTATED 1000 ML 1,000 ML 70 ML IV (18:43)
[2024-12-23 20:23] LABS: INR 1.2 (0.9-1.3); Partial Thromboplastin Time 31.9 Seconds (22.0-36.0)
--- NOTE | 2024-12-23 20:55 | PC.NURSE ---
Pt came in from ED, alert and oriented, no C/O of pain at this time. Call light at bedside. Will continue to monitor.
[2024-12-23] MEDS: GABAPENTIN 100 MG CAPSULE 300 MG PO (21:22)
--- NOTE | 2024-12-23 21:44 | EKG_ITS ---
[facility] Test Date: 2024-12-23 Pat Name: NANI MILLAN Department: Room: S363A Gender: Male Schedule Analyst: KAYCEE : 1940 Requested By: Katt Rodriguez Order Number: [id number] Reading MD: Katt Rodriguez Measurements Intervals [place] Rate: 84 P: [place]: QRS: 56 QRSD: 90 T: 11 QT: 400 QTc: 476 Interpretive Statements ATRIAL FIBRILLATION WITH ABERRANT CONDUCTION OR VENTRICULAR PREMATURE COMPLEXES ABNORMAL RHYTHM ECG Compared to ECG 11/11/2024 05:36:52 Ventricular premature complex(es) now present Aberrant conduction of supraventricular beat(s) now present ST (T wave) deviation no longer present /store/S0/[id number].pdf
[2024-12-23] MEDS: POTASSIUM CHL 10 mEq IVPB 10 MEQ/100 ML BAG 100 MEQ IV ×2 (22:14→23:09)
[2024-12-24] VITALS (14 sets, daily range): BP systolic 123–154; BP diastolic 7–82; PULSE 63–88; RESP 14–96; TEMP 36.1–36.7; O2SAT 92–96
[2024-12-24] MEDS: POTASSIUM CHL 10 mEq IVPB 10 MEQ/100 ML BAG 100 MEQ IV ×2 (00:09→01:20)
[2024-12-24] MEDS: GABAPENTIN 100 MG CAPSULE 300 MG PO ×3 (05:01→21:22)
[2024-12-24 05:52] LABS: Basophils % (Auto) 1 % (0-2.5); Eosinophils # (Auto) 0.2 Thou/mm3 (0.0-0.5); Eosinophils % (Auto) 4 % (0-10); Hematocrit 30.6 % (41.0-53.0); Immature Granulocytes % (Auto) 1 % (0-0); Immature Granulocytes Auto 0.03 Thou/mm3 (0.00-0.00); Lymphocytes # (Auto) 0.7 Thou/mm3 (1.0-4.8); Lymphocytes % (Auto) 15 % (10-50); Mean Corpuscular HGB Conc 32.7 g/dl (31.0-37.0); Mean Corpuscular Hemoglobin 29.2 pg (25.0-35.0); Mean Corpuscular Volume 89 fL (80-100); Monocytes # (Auto) 0.6 Thou/mm3 (0.0-0.8); Monocytes % (Auto) 13 % (0-12); Neutrophils # (Auto) 3.2 Thou/mm3 (1.8-7.7); Neutrophils % (Auto) 67 % (37-80); Nucleated Red Blood Cell % 0 /100 WBC (0); Platelet Count 336 Thou/mm3 (140-440); RDW Standard Deviation 49.5 fL (35.1-43.9); Red Blood Count 3.43 Miln/mm3 (4.50-5.90); White Blood Count 4.7 Thou/mm3 (3.8-10.6)
[2024-12-24 06:23] LABS: Sed Rate (ESR) 28 mm/hr (0-20)
[2024-12-24 06:31] LABS: Alanine Aminotransferase 8 U/L (10-49); Albumin, Serum 3.2 gm/dL (3.4-4.8); Albumin/Globulin Ratio 1.4 (1.2-2.2); Alkaline Phosphatase 61 U/L (46-116); Anion Gap 7 (7-16); Aspartate Amino Transferase 20 U/L (0-34); BUN/Creatinine Ratio 12 Ratio (12-20); Bilirubin,Total 0.8 mg/dL (0.3-1.2); Blood Urea Nitrogen 6 mg/dL (9-23); Calcium 8.4 mg/dL (8.3-10.6); Carbon Dioxide 28.2 mMol/L (20.0-31.0); Chloride 107 mMol/L (98-107); Creatinine (Component) 0.5 mg/dL (0.6-1.3); Estimated Creatinine Clearance 94.3 mL/min (>60); Globulin 2.3 gm/dL (2.3-3.5); Glucose 91 mg/dL (74-106); Magnesium 2.1 mg/dL (1.6-2.6); Osmolality,Calculated 280 (275-295); Sodium 142 mMol/L (136-145); Thyroid Stimulating Hormone 2.57 uIU/mL (0.55-4.78); Total Protein 5.5 gm/dL (5.7-8.2); eGFR > 60 See Note
[2024-12-24] MEDS: FINASTERIDE 5 MG TABLET PO (08:04)
[2024-12-24] MEDS: METOPROLOL SUCCINATE XL 25 MG TABCR 50 MG PO (08:04)
[2024-12-24 08:36] LABS: INR 1.1 (0.9-1.3); Partial Thromboplastin Time 31.5 Seconds (22.0-36.0); Prothrombin Time 12.4 Seconds (9.0-12.2)
[2024-12-24] MEDS: HEPARIN SOD INJ 5000 UNIT/ML VIAL 3650 UNIT IV (09:54)
[2024-12-24] MEDS: Heparin/D5w 25K 250 ML Ivpb 25,000 UNIT/250 ML BAG 7.272 UNIT IV (09:55)
[2024-12-24] MEDS: RINGERS LACTATED 1000 ML 1,000 ML 70 ML IV (09:59)
--- NOTE | 2024-12-24 10:56 | PD.RESPRO ---
Documentation for date of: 12/24/24 Subjective Subjective Interval history: Patient seen and examined at bedside. Patient has atrial fibrillation episodes on telemetry. Old EKGs reviewed, patient did have atrial fibrillation in November. Patient is unaware of the diagnosis of atrial fibrillation, cardiology consulted. Patient will be started on amiodarone 200 mg p.o. twice daily, heparin drip. Will continue metoprolol succinate 50 mg daily. Otherwise patient is stable, complains of being tired, reports was not able to sleep well, uses melatonin at home. Will start patient on melatonin at bedtime. Patient will be scheduled for possible biopsy of lymph node for further malignancy workup in a.m. by interventional radiology. Exam Vital Signs Temp Pulse Resp BP Pulse Ox O2 Del Method 97.8 F 63 20 123/74 92 L Room Air 12/24/24 04:00 12/24/24 08:04 12/24/24 04:00 12/24/24 08:04 12/24/24 04:00 12/24/24 04:00 Narrative Exam Physical Exam General: Awake and in no acute distress. Conversational and non-toxic appearing. HEENT: Normocephalic, atraumatic, mucous membranes moist. Heart: Regular rate and rhythm, no murmurs. Lungs: Clear to auscultation with no wheezing or crackles. Abdomen: Soft, nondistended, nontender, positive bowel sounds. ?No guarding or rebound tenderness. Neurologic: Alert and oriented x3, no gross neurological deficit, and patient able to move all 4 extremities. Extremities: No edema. Skin: No rash or ecchymoses. Objective Labs 12/24/24 05:00 12/24/24 05:00 Labs: Laboratory Results - last 24 hr 12/23/24 12/23/24 12/23/24 10:44 15:38 19:16 WBC 6.6 RBC 3.77 L Hgb 10.9 L Hct 33.2 L MCV 88 MCH 28.9 MCHC 32.8 RDW Std Deviation 48.7 H Plt Count 293 D Neut % (Auto) 78 Lymph % (Auto) 8 L Darke % (Auto) 11 Eos % (Auto) 2 Baso % (Auto) 1 Neut # (Auto) 5.2 Lymph # (Auto) 0.6 L Darke # (Auto) 0.7 Eos # (Auto) 0.1 Baso # (Auto) 0.0 Immature Gran # (Auto) 0.03 H Absolute Nucleated RBC 0.00 Immature Gran % 1 H Nucleated RBC % 0 ESR PT 12.7 H 13.0 H INR 1.2 1.2 APTT 31.9 Sodium 137 Potassium 3.3 L Chloride 100 Carbon Dioxide 30.7 Anion Gap 6 L BUN 12 Creatinine 0.7 Estim Creat Clear Calc 73.4 eGFR > 60 BUN/Creatinine Ratio 17 Glucose 121 H Calculated Osmolality 274 L Calcium 8.7 Corrected Calcium 8.9 Phosphorus Magnesium Total Bilirubin 1.2 AST 23 ALT 8 L Alkaline Phosphatase 68 C-Reactive Prot, Quant 8.8 H Total Protein 6.2 Albumin 3.7 Globulin 2.5 Albumin/Globulin Ratio 1.5 Lipase 25 TSH Ur Collection Type Voided Urine Color Yellow Urine Clarity Clear Urine pH 6.5 Ur Specific [place] 1.011 Urine Protein Negative Urine Glucose (UA) Negative Urine Ketones Negative Urine Blood Negative Urine Nitrite Negative Urine Bilirubin Negative Urine Urobilinogen (Auto) Negative Ur Leukocyte Esterase Negative Urine RBC 1 Urine WBC 1 Ur Squamous Epith Cells < 1 Urine Bacteria None Ur Culture Indicated? Not Indicated Blood Type O Positive Antibody Screen NEGATIVE Blood Bank Wristband ID Yes 12/23/24 12/24/24 22:18 05:00 WBC 4.7 RBC 3.43 L Hgb 10.0 L Hct 30.6 L MCV 89 MCH 29.2 MCHC 32.7 RDW Std Deviation 49.5 H Plt Count 336 D Neut % (Auto) 67 Lymph % (Auto) 15 Darke % (Auto) 13 H Eos % (Auto) 4 Baso % (Auto) 1 Neut # (Auto) 3.2 Lymph # (Auto) 0.7 L Darke # (Auto) 0.6 Eos # (Auto) 0.2 Baso # (Auto) 0.0 Immature Gran # (Auto) 0.03 H Absolute Nucleated RBC 0.00 Immature Gran % 1 H Nucleated RBC % 0 ESR 28 H PT 12.4 H INR 1.1 APTT 31.5 Sodium 142 Potassium 4.0 D Chloride 107 Carbon Dioxide 28.2 Anion Gap 7 BUN 6 L Creatinine 0.5 L Estim Creat Clear Calc 94.3 eGFR > 60 BUN/Creatinine Ratio 12 Glucose 91 Calculated Osmolality 280 Calcium 8.4 Corrected Calcium 9.0 Phosphorus 3.0 Magnesium 2.0 2.1 Total Bilirubin 0.8 AST 20 ALT 8 L Alkaline Phosphatase 61 C-Reactive Prot, Quant Total Protein 5.5 L Albumin 3.2 L D Globulin 2.3 Albumin/Globulin Ratio 1.4 Lipase TSH 2.57 Ur Collection Type Urine Color Urine Clarity Urine pH Ur Specific [place] Urine Protein Urine Glucose (UA) Urine Ketones Urine Blood Urine Nitrite Urine Bilirubin Urine Urobilinogen (Auto) Ur Leukocyte Esterase Urine RBC Urine WBC Ur Squamous Epith Cells Urine Bacteria Ur Culture Indicated? Blood Type Antibody Screen Blood Bank Wristband ID Quality Measures Quality Measures none Advance care planning discussed with:: patient Assessment & Plan Assessment Current Active Medications: Generic Name Dose Route Start Last Admin Trade Name Freq PRN Reason Stop Dose Admin Acetaminophen 650 mg 12/23/24 18:11 Acetaminophen 325 Mg Tablet PO 01/22/25 18:10 Q6H PRN Mild Pain (1-3) & Fever >101.5 Hydrocodone Bitart/Acetaminophen 1 tab 12/23/24 18:25 Hydrocodone/Apap 5/325 Tablet PO 12/28/24 18:24 Q6HR PRN PAIN SCALE 4-10(Mod-Sev Albuterol/Ipratropium 3 ml 12/23/24 18:28 Albuterol/Ipratropium (Duoneb) Rt Fanny 3 Ml Nebu INH 01/22/25 18:59 Q4HRRT PRN SOB/Wheeze Amiodarone HCl 200 mg 12/24/24 10:15 Amiodarone Hcl 200 Mg Tablet PO 01/23/25 10:14 BID PEPPER Finasteride 5 mg 12/24/24 09:00 12/24/24 08:04 Finasteride 5 Mg Tablet PO 01/23/25 08:59 5 mg QDAY PEPPER Administration Gabapentin 300 mg 12/23/24 22:00 12/24/24 05:01 Gabapentin 100 Mg Capsule PO 01/22/25 21:59 300 mg TID PEPPER Administration Lactated Ringer's 1,000 mls @ 70 mls/hr 12/23/24 18:15 12/24/24 09:59 Lactated Ringers IV 01/22/25 18:14 70 mls/hr .[id number] PEPPER Administration Heparin Sodium/Dextrose 25,000 unit in 250 mls @ 7.272 mls/hr 12/24/24 08:30 12/24/24 09:55 Heparin In D5w Ivpb IV 01/07/25 08:29 12 units/kg/hr .Q24H PEPPER 7.272 mls/hr Administration Protocol 12 UNITS/KG/HR Metoprolol Succinate 50 mg 12/24/24 09:00 12/24/24 08:04 Metoprolol Succinate Xl 25 Mg Tabcr PO 01/23/25 08:59 50 mg DAILY PEPPER Administration Ondansetron HCl 4 mg 12/23/24 18:11 Ondansetron Inj 2 Mg/Ml Inj 2 Ml IV 01/22/25 18:10 Q6H PRN NAUSEA OR VOMITING Protocol Plan Assessment and plan: Summary: Mr. Johnston is a 84-year-old male with past medical history of coronary artery disease status post CABG, hyperlipidemia, hypertension, chronic vertigo, COPD, prostate cancer status post chemotherapy who presented to [facility] emergency department on with a chief complaint of diarrhea. Patient reported that he has been having diarrhea for the last month, reports having poor appetite decreased p.o. intake and significant unintentional weight loss of about 20 pounds in the last 1 month. Patient is admitted to hospital for further workup. #Paroxysmal atrial fibrillation, new onset Patient had atrial fibrillation on telemetry, old EKGs reviewed, EKG from November 2024 shows atrial fibrillation. Cardiology consulted. [id number] Score: 4 points and HAS BLED score 2 points Plan: - Will continue metoprolol succinate 50 mg daily - Patient was restarted on amiodarone 200 mg twice daily per cardiology recommendations. - Patient will be started on heparin drip, considering patient will be scheduled for biopsy in a.m. - Eventually will consider starting patient on Eliquis - Ordered echocardiogram to assess LV/RV function, left atrial diameter. #Chronic diarrhea #Unintentional weight loss #Poor p.o. intake Patient has chronic diarrhea for the last month, reports having poor appetite decreased p.o. intake and significant unintentional weight loss of about 20 pounds in the last 1 month. Was given 2 L bolus in ED, CRP 8.8 ESR 28 Plan: -IV Maintenance fluid -Stool WBC -Stool Culture -Cardiac diet, monitor Bowel movements -Zofran PRN for nausea #Electrolyte abnormality #Hypokalemia Potassium 3.3 on presentation -Correct and replace electolytes as needed #Acute kidney injury BUN 12, Cr 0.7, GFR >60, possible LAUREN considering significant weight loss/muscle loss. -IV Maintenance fluid -Avoid Nephrotoxic agents -Follow renal panel in AM #8 mm right supraclavicular hypermetabolic lymph node #6 mm hypermetabolic high right paratracheal lymph node #20 mm hypermetabolic right pretracheal lymph node #Extensive bulky para-aortic pericaval and mesenteric hypermetabolic lymphadenopathy. #History of prostate cancer status postchemotherapy Concern of lymphoma - Patient will be scheduled for IR guided biopsy in a.m., will hold heparin drip prior to procedure - Oncology consulted, appreciate recommendations #Thoracic aortic aneurysm #Infrarenal abdominal aorta aneurysm CT abdomen pelvis 11/06/2024 shows aortoiliac endoluminal stent, infrarenal abdominal aorta aneurysm dilatation 5.7 cm PET scan shows medial atrial dimension ascending thoracic aorta 5.1 cm, medial atrial dimension descending thoracic aorta 4 cm - Patient follows Dr. Johnson doctor of osteopathy outpatient - Maintain strict blood pressure control #Hypertension #Hyperlipidemia #Coronary artery disease status post CABG #COPD Pending Med rec. Blood Pressure soft, will monitor Duoneb PRN DVT prophylaxis: Heparin GI prophylaxis: Not indicated Diet:Cardiac Lines: Peripheral IV Code status: Full Code Case discussed with Attending Dr. Walton. Zuleika Tian PGY1 Disclaimer: This note was dictated by speech recognition. Minor errors in adolescent specialist may be present due to voice recognition software. Attending Provider Attestation/Addendum Patient seen and examined at bedside with resident. Agree with assessment and plan as dictated above. Patient had episode of afib overnight. Cardio consulted and patient initiated on heparin drip this morning. Upon further review with cardiology, afib appears to be paroxysmal, recommended metoprolol succinate with addition of amiodarone 200 bid and continue heparin drip. Will hold for possible LN biopsy tomorrow morning, npo after midnight. Channing Walton MD
[2024-12-24] MEDS: AMIODARONE HCL 200 MG TABLET PO ×2 (11:23→20:31)
--- NOTE | 2024-12-24 12:08 | PC.NURSE ---
Pt transferred to telemetry via hospital bed with JENIFER Lacy. Stable vitals, no signs of distress
[2024-12-24] MEDS: HYDROcodone/APAP 5/325 TABLET 1 TAB PO ×2 (14:46→20:33)
[2024-12-24 14:58] LABS: Stool for WBCs Negative (Negative)
[2024-12-24] MEDS: TAMSULOSIN HCL 0.4 MG CAPSULE 0.8 MG PO (15:02)
[2024-12-24] MEDS: ONDANSETRON INJ 2 MG/ML INJ 2 ML 4 MG IV (15:41)
[2024-12-24 16:51] LABS: Partial Thromboplastin Time 35.8 Seconds (22.0-36.0)
[2024-12-24] MEDS: HEPARIN SOD INJ 5000 UNIT/ML VIAL 3650 UNIT IVP (17:19)
--- NOTE | 2024-12-24 20:25 | ESCONSULT_ITS ---
RE: NANI MILLAN : 1940 DATE OF CONSULTATION: 12/24/2024 CONSULTING PHYSICIANS: Dr. Zuleika Tian and hospitalist. REASON FOR CONSULTATION: Evaluation of possible atrial fibrillation. HISTORY OF PRESENT ILLNESS: The patient is an 84-year-old male with a longstanding history of known CAD status post coronary artery bypass graft surgery about 5 years ago and history of AAA ELG EVAR graft placement, hypertension, hypercholesterolemia, failure to thrive, prostate carcinoma status post chemotherapy in the past, presented to the hospital with severe weakness and diarrhea, not feeling well. Generally poor appetite, failure to thrive, significant weight loss in the last few months, working up for malignancy, possibly lymph node biopsy was ordered because of cervical lymph nodes. Dr. Padilla, radiation oncology is following the patient. The CT of the abdomen reveals evidence of cholelithiasis and there is also evidence of _ abdominal lymphadenopathy; possible lymphoma was working diagnosis here. The patient also _ lymphadenopathy as well. The patient incidentally found to have atrial fibrillation episodes, appears to be AFIB with controlled heart rate, intermittent rapid rates, but mostly sinus rhythm with PACs, but in 11/2024, the patient had an EKG that showed definite atrial fibrillation. The patient appears to have paroxysmal atrial fibrillation, but not treated for now. Dr. Johnson is his emt driver, but not told to have A-fib. The patient is only on Plavix and anti-anginal medication, Ranexa and metoprolol as well as nitrates for angina pectoris, atorvastatin as well as prostatic medication, finasteride and tamsulosin. ALLERGIES: PATIENT IS ALLERGIC TO PENICILLIN. MEDICATIONS: Finasteride 0.5 mg daily, tamsulosin 0.4 mg daily, atorvastatin 80 mg daily, clopidogrel 75 mg daily, isosorbide 30 mg daily, metoprolol succinate 50 mg daily and _Metformin 500 mg twice daily. PAST MEDICAL HISTORY: CAD status post bypass graft surgery, paroxysmal A-fib, prostate carcinoma and now diagnosed with lymphadenopathy. SOCIAL HISTORY: The patient is not a smoker, does not drink alcoholic beverages. FAMILY HISTORY: Noncontributory REVIEW OF SYSTEMS: Cardiovascular: Palpitations, but no chest pain Gastrointestinal: No nausea or vomiting Genitourinary: negative__ PHYSICAL EXAMINATION: GENERAL: Thin built elderly male, alert, awake, in no acute distress. VITAL SIGNS: Blood pressure is 154/82, pulse rate is 74, respirations 14, temperature 97. HEENT: Examination of the head is atraumatic and normocephalic. ABDOMEN: Thin and soft. EXTREMITIES: No edema. GENITOURINARY AND RECTAL: Not performed. RESEARCH PHYSICIAN: The patient is _ alert and oriented x3. No focal deficits. LABORATORY DATA: Hemoglobin 10, hematocrit 30. Chemistry panel showed BUN and creatinine normal. DIAGNOSTIC DATA: The CT scan of the abdomen and pelvis showed that aneurysmal sac of abdominal aortic aneurysm was 5.7 cm. The patient appears to have an endoluminal stent graft placement with both limbs are seen well. Abdominal endoluminal stent graft is present. EKG in November showed atrial fibrillation, controlled rate. IMPRESSION/ASSESSMENT: 1. Paroxysmal atrial fibrillation, CHADS-VASc score of 4. 2. Hypertension. 3. History of abdominal aortic aneurysm, stent graft placement, endoluminal stent graft. 4. Lymphadenopathy, possible lymphoma. 5. Coronary artery disease status post bypass graft surgery. 6. Angina pectoris, stable. RECOMMENDATIONS: I agree with the present medical management. Recommend rate control with metoprolol for now and IV heparin can be continued to prevent strokes, discontinue at the time of biopsy. Metoprolol succinate 50 mg to be continued for rate control. The patient's CHADS-VASc score is elevated, hence recommending Eliquis for anticoagulation at the time of discharge. I am also recommending amiodarone 200 mg twice daily to maintain sinus rhythm since the patient has paroxysmal A-fib. As for anginal treatment, Ranexa can be continued after discharge; isosorbide does not need to be continued since he is not having any anginal pectoris. DT: 16:51:47 TT: 20:14:00 Ref: [id number] - TID: [id number] MTDD
[2024-12-24 23:42] LABS: Partial Thromboplastin Time 48.7 Seconds (22.0-36.0)
[2024-12-25] VITALS (16 sets, daily range): BP systolic 109–132; BP diastolic 62–78; PULSE 58–74; RESP 11–97; TEMP 36.1–36.4; O2SAT 93–100; BMI 19.8
[2024-12-25] MEDS: RINGERS LACTATED 1000 ML 1,000 ML 70 ML IV (00:29)
[2024-12-25] MEDS: HEPARIN SOD INJ 5000 UNIT/ML VIAL 1800 UNIT IV ×2 (00:31→22:54)
--- NOTE | 2024-12-25 06:26 | PD.ONCCONS ---
HPI Data of Consult Requesting Physician: Channing Walton MD Primary Care Provider: Jameson Tucker MD Consult Narrative Reason for consult: Suspected malignancy likely lymphoma History of present illness: 84-year-old gentleman with abdominal pain weight loss and extensive adenopathy noted in the abdominal region and chest was seen at at the cancer center earlier in the week. Outpatient workup was planned for the likely malignancy, when patient was admitted for decreased p.o. intake and significant diarrhea with weight loss of 20 pounds in just 1 month. Also noted was atrial fibrillation in telemetry cardiology seeing patient. Labs December 23, 2024 WBC 4.7 hemoglobin 10.0 platelets 336 potassium 3.3 BUN [address] scan 11/01/2023 showed small noncalcified pulmonary nodules. PET scan December 12, 2024 revealed extensive bulky para-aortic pericaval mesenteric hypermetabolic lymphadenopathy along with 8 mm right supra Clav lymph node and 20 mm hypermetabolic right pretracheal lymph node and 6 mm hypermetabolic high right paratracheal lymph node. Patient now referred for oncological consultation. cc:: cc: Channing Walton MD Past Medical History Social History SOCIAL: Patient an [employer] at his [employer] denies drinking smoking Past Medical History Comments PMH COMMENT: Asthma COPD high blood pressure prostatism A-fib Meds Home Medications and Allergies Home Medications ?Medication ?Instructions ?Recorded ?Confirmed ?Type finasteride 5 mg tablet (Proscar) 5 mg PO QDAY #0 tabs 06/21/15 12/23/24 History tamsulosin 0.4 mg capsule (Flomax) 0.8 mg PO QDAY ##0 06/21/15 12/23/24 History atorvastatin 80 mg tablet 80 mg PO QDAY 07/22/18 12/23/24 History clopidogrel 75 mg tablet 75 mg PO DAILY 11/01/23 12/23/24 History fluticasone fur. 100 mcg-umeclid 1 inh inhalation QDAY 11/01/23 11/01/23 History 62.5 mcg-vilant 25 mcg inhalat.powder (Trelegy Ellipta) isosorbide mononitrate 30 mg 30 mg PO DAILY 11/01/23 12/23/24 History tablet,extended release 24 hr metoprolol succinate 50 mg 50 mg PO DAILY 11/01/23 12/23/24 History tablet,extended release 24 hr nitroglycerin 0.4 mg sublingual 0.4 mg buccal PRN PRN Chest Pain 11/01/23 11/01/23 History tablet ranolazine 500 mg tablet,extended 1,000 mg PO DAILY 11/01/23 12/23/24 History release,12 hr ezetimibe 10 mg tablet 10 mg PO QDAY 12/23/24 12/23/24 History gabapentin 300 mg capsule 300 mg PO TID 12/23/24 12/23/24 History hydrocodone 5 mg-acetaminophen 325 1 tab PO Q6H PRN pain 12/23/24 12/23/24 History mg tablet Allergies Allergy/AdvReac Type Severity Reaction Status Date / Time Penicillins Allergy Severe Vomiting Verified 12/23/24 09:55 Exam Vital Signs Temp Pulse Resp BP Pulse Ox O2 Del Method 97.2 F 62 14 132/71 H 98 Room Air 12/25/24 04:00 12/25/24 04:00 12/25/24 04:00 12/25/24 04:00 12/25/24 04:00 12/25/24 00:00 Narrative Exam Patient lying in no acute distress Results Labs 12/24/24 05:00 12/24/24 05:00 Labs: BMP 12/24/24 05:00 Sodium 142 Potassium 4.0 D Chloride 107 Carbon Dioxide 28.2 BUN 6 L Creatinine 0.5 L Glucose 91 Calcium 8.4 Liver Function 12/24/24 Range/Units 05:00 Total Bilirubin 0.8 (0.3-1.2) mg/dL AST 20 (0-34) U/L ALT 8 L (10-49) U/L Alkaline Phosphatase 61 (46-116) U/L Albumin 3.2 L D (3.4-4.8) gm/dL Assessment and Plan Additional Assessment & Plan Additional Plan: 1. Admitted with diarrhea significant weight loss in telemetry and seeing material planner for atrial fibrillation. 2. Widespread adenopathy particularly abdominal region suggestive of malignancy. 3. Biopsy pending of the right supra clavicle area. The abdominal lymphadenopathy is more extensive but will defer to ballast cleaning machine operator about the ideal spot to biopsy.
[2024-12-25 07:31] LABS: Basophils % (Auto) 1 % (0-2.5); Eosinophils # (Auto) 0.2 Thou/mm3 (0.0-0.5); Eosinophils % (Auto) 4 % (0-10); Hematocrit 35.5 % (41.0-53.0); Hemoglobin 11.5 g/dL (13.5-16.0); Immature Granulocytes % (Auto) 1 % (0-0); Immature Granulocytes Auto 0.03 Thou/mm3 (0.00-0.00); Lymphocytes # (Auto) 0.6 Thou/mm3 (1.0-4.8); Lymphocytes % (Auto) 12 % (10-50); Mean Corpuscular HGB Conc 32.4 g/dl (31.0-37.0); Mean Corpuscular Hemoglobin 28.8 pg (25.0-35.0); Mean Corpuscular Volume 89 fL (80-100); Monocytes # (Auto) 0.5 Thou/mm3 (0.0-0.8); Monocytes % (Auto) 10 % (0-12); Neutrophils # (Auto) 3.9 Thou/mm3 (1.8-7.7); Neutrophils % (Auto) 73 % (37-80); Nucleated Red Blood Cell % 0 /100 WBC (0); Platelet Count 320 Thou/mm3 (140-440); RDW Standard Deviation 48.8 fL (35.1-43.9); White Blood Count 5.3 Thou/mm3 (3.8-10.6)
[2024-12-25 08:02] LABS: Alanine Aminotransferase < 7 U/L (10-49); Albumin, Serum 3.6 gm/dL (3.4-4.8); Albumin/Globulin Ratio 1.5 (1.2-2.2); Alkaline Phosphatase 64 U/L (46-116); Anion Gap 7 (7-16); Aspartate Amino Transferase 21 U/L (0-34); BUN/Creatinine Ratio 8 Ratio (12-20); Bilirubin,Total 0.7 mg/dL (0.3-1.2); Blood Urea Nitrogen 5 mg/dL (9-23); Calcium 8.9 mg/dL (8.3-10.6); Calcium (Corrected) 9.2 mg/dL (8.5-10.1); Carbon Dioxide 30.2 mMol/L (20.0-31.0); Chloride 105 mMol/L (98-107); Creatinine (Component) 0.6 mg/dL (0.6-1.3); Estimated Creatinine Clearance 78.6 mL/min (>60); Globulin 2.4 gm/dL (2.3-3.5); Glucose 91 mg/dL (74-106); Magnesium 2.1 mg/dL (1.6-2.6); Osmolality,Calculated 280 (275-295); Phosphorous 3.2 mg/dL (2.4-5.1); Potassium 4.2 mMol/L (3.4-5.1); Sodium 142 mMol/L (136-145); eGFR > 60 See Note
--- NOTE | 2024-12-25 08:23 | ECHO_ITS ---
Transthoracic Echo Report Ht (in): 69 Wt (lb): 133 Exam Location: Echo Lab Status: Inpatient Tobacco Prevention Health Educator: Nicki Stinson Indications: Procedure Performed: BP: 128 / 65 HR: 100 MEASUREMENTS (Male / Female) Normal Values 2D ECHO LV Diastolic Diameter PLAX 4.0 cm 4.2 - 5.9 / 3.9 - 5.3 cm LV Systolic Diameter PLAX 2.9 cm IVS Diastolic Thickness 1.1 cm 0.6 - 1.0 / 0.6 - 0.9 cm LVPW Diastolic Thickness 1.2 cm 0.6 - 1.0 / 0.6 - 0.9 cm LV Relative Wall Thickness 0.6 LVOT Diameter 1.9 cm Aortic Root Diameter 4.1 cm DOPPLER AV Peak Velocity 156.3 cm/s AV Peak Gradient 9.8 mmHg AV Mean Gradient 5.2 mmHg AV Velocity Time Integral 33.4 cm LVOT Peak Velocity 111.0 cm/s LVOT Peak Gradient 4.9 mmHg LVOT Velocity Time Integral 25.0 cm LVOT Cardiac Index 4155.3 cm?/min?m? AV Area Cont Eq vti 2.1 cm? AV Area Cont Eq pk 2.0 cm? MV Area PHT 3.2 cm? MR Peak Velocity 259.0 cm/s MR Peak Gradient 26.8 mmHg Mitral E Point Velocity 60.1 cm/s Mitral A Point Velocity 65.0 cm/s Mitral E to A Ratio 0.9 TR Peak Velocity 206.0 cm/s TR Peak Gradient 17.0 mmHg PV Peak Velocity 126.0 cm/s PV Peak Gradient 6.4 mmHg FINDINGS Left Ventricle Normal left ventricular size, wall thickness, systolic function with no obvious regional wall motion abnormalities. Normal left ventricular diastolic filling pattern for age. The ejection fraction is visually estimated at 55-60 %. Right Ventricle The right ventricle is normal in size and systolic function. Left Atrium The left atrium is normal by two-dimensional, color flow and Doppler imaging with no structural abnormalities, no thrombus formation present. Right Atrium The right atrium is normal by two-dimensional imaging, color flow and Doppler imaging with no structural abnormalities, no thrombus formation present. Atrial Septum The interatrial septum appears normal with no evidence of a shunt. Aorta Mildly dilated aorta root. Mitral Valve Trace to mild mitral regurgitation. Aortic Valve Mild thickening of the aortic valve leaflets. Mild aortic valve regurgitation. Tricuspid Valve There is mild tricuspid valve regurgitation. Pulmonic Valve The pulmonic valve is not well visualized. There is no significant pulmonic valve regurgitation. Vessels The pulmonary artery appears normal. The inferior vena cava pulmonary and hepatic veins appear normal. Pericardium The pericardium is normal by two-dimensional imaging. There is no significant pericardial effusion.[id number] CONCLUSIONS Indication: New onset atrial fibrillation Normal LV size and function. Estimated EF 55-60%. RV is normal in size and systolic function. Mildly dilated aorta root. Trace to mild MR. Mild thickening of the AV. Mild AI. There is mild TR. Enma Brasher (Electronically Signed) Final Date: 25 December 2024 23:27
--- NOTE | 2024-12-25 09:11 | PC.SS ---
Follow up note: Biopsy today.
[2024-12-25] MEDS: FINASTERIDE 5 MG TABLET PO (09:29)
[2024-12-25] MEDS: AMIODARONE HCL 200 MG TABLET PO ×2 (09:29→21:45)
[2024-12-25] MEDS: METOPROLOL SUCCINATE XL 25 MG TABCR 50 MG PO (09:29)
[2024-12-25] MEDS: TAMSULOSIN HCL 0.4 MG CAPSULE 0.8 MG PO (09:29)
--- NOTE | 2024-12-25 09:35 | XR_ITS ---
Examination: CT guided percutaneous biopsy mesenteric lymph nodes CT abdomen without intravenous contrast Date and time of procedure: December 25, 2024 1344 hours INDICATIONS: PET CT scan December 12, 2024 extensive hypermetabolic mesenteric lymphadenopathy Informed consent provided. A timeout was completed verifying correct patient, procedure, site and positioning. Technique: Axial 3 mm sections were obtained for localization of enlarged mesenteric lymph nodes. Appropriate area is marked. The patient's site was prepped and draped in sterile fashion Maximal sterile barrier technique utilized, including hand hygiene Local anesthesia was obtained with 1% lidocaine. Low dose protocols were performed. One or more of the following dose reduction techniques were used; automated exposure control, adjustment of the mA and/or KV according to patient size, use of iterative reconstruction technique. Utilizing CT fluoroscopic guidance 6 core biopsies obtained of the mesenteric lymph nodes Patient appears in stable condition during this procedure. At completion of the procedure, the patient is in satisfactory condition. Estimated blood loss 2 cc Complete pathology report to follow. Impression: Successful CT-guided percutaneous biopsy mesenteric lymph nodes
[2024-12-25 10:03] LABS: INR 1.1 (0.9-1.3); Prothrombin Time 12.4 Seconds (9.0-12.2)
--- NOTE | 2024-12-25 13:21 | ESPR_ITS ---
<Statement entered by Jace Marie MD - 12/25/24 22:21> I discussed with and supervised the marketing operations intern physician involved in the care of this patient. Patient assessment and plan was discussed with entire medicine team, including my attending. I agree with the assessment and plan as documented by marketing operations intern doctor. Patient care was discussed with my attending physician Dr. Anamika Marie, PGY-2 Documentation for date of: 12/25/24 Subjective Subjective Interval history: Patient seen and examined at bedside. Patient's atrial fibrillation is rate controlled, will continue amiodarone and metoprolol succinate. Heparin drip to be held, patient scheduled for IR guided biopsy of lymph node today. Will obtain further studies fecal calprotectin, C. difficile and Giardia antigen. Will continue to monitor patient. Exam Vital Signs Temp Pulse Resp BP Pulse Ox O2 Del Method 97.5 F 72 18 126/78 94 L Room Air 12/25/24 07:22 12/25/24 09:29 12/25/24 07:22 12/25/24 09:29 12/25/24 07:22 12/25/24 07:22 Narrative Exam Physical Exam General: Awake and in no acute distress. Conversational and non-toxic appearing. HEENT: Normocephalic, atraumatic, mucous membranes moist. Heart: Regular rate and rhythm, no murmurs. Lungs: Clear to auscultation with no wheezing or crackles. Abdomen: Soft, nondistended, nontender, positive bowel sounds. ?No guarding or rebound tenderness. Neurologic: Alert and oriented x3, no gross neurological deficit, and patient able to move all 4 extremities. Extremities: No edema. Skin: No rash or ecchymoses. Objective Labs 12/26/24 05:18 12/26/24 05:18 Labs: Laboratory Results - last 24 hr 12/24/24 12/24/24 12/24/24 12:33 16:21 23:15 WBC RBC Hgb Hct MCV MCH MCHC RDW Std Deviation Plt Count Neut % (Auto) Lymph % (Auto) [place] % (Auto) Eos % (Auto) Baso % (Auto) Neut # (Auto) Lymph # (Auto) [place] # (Auto) Eos # (Auto) Baso # (Auto) Immature Gran # (Auto) Absolute Nucleated RBC Immature Gran % Nucleated RBC % PT INR APTT 35.8 48.7 H D Sodium Potassium Chloride Carbon Dioxide Anion Gap BUN Creatinine Estim Creat Clear Calc eGFR BUN/Creatinine Ratio Glucose Calculated Osmolality Calcium Corrected Calcium Phosphorus Magnesium Total Bilirubin AST ALT Alkaline Phosphatase Total Protein Albumin Globulin Albumin/Globulin Ratio Stool for White Cells Negative 12/25/24 06:54 WBC 5.3 RBC 4.00 L Hgb 11.5 L Hct 35.5 L MCV 89 MCH 28.8 MCHC 32.4 RDW Std Deviation 48.8 H Plt Count 320 Neut % (Auto) 73 Lymph % (Auto) 12 [place] % (Auto) 10 Eos % (Auto) 4 Baso % (Auto) 1 Neut # (Auto) 3.9 Lymph # (Auto) 0.6 L [place] # (Auto) 0.5 Eos # (Auto) 0.2 Baso # (Auto) 0.0 Immature Gran # (Auto) 0.03 H Absolute Nucleated RBC 0.00 Immature Gran % 1 H Nucleated RBC % 0 PT 12.4 H INR 1.1 APTT Sodium 142 Potassium 4.2 Chloride 105 Carbon Dioxide 30.2 Anion Gap 7 BUN 5 L Creatinine 0.6 Estim Creat Clear Calc 78.6 eGFR > 60 BUN/Creatinine Ratio 8 L Glucose 91 Calculated Osmolality 280 Calcium 8.9 Corrected Calcium 9.2 Phosphorus 3.2 Magnesium 2.1 Total Bilirubin 0.7 AST 21 ALT < 7 L Alkaline Phosphatase 64 Total Protein 6.0 Albumin 3.6 Globulin 2.4 Albumin/Globulin Ratio 1.5 Stool for White Cells Quality Measures Quality Measures none Advance care planning discussed with:: patient Assessment & Plan Assessment Current Active Medications: Generic Name Dose Route Start Last Admin Trade Name Edith PRN Reason Stop Dose Admin Acetaminophen 650 mg 12/23/24 18:11 Acetaminophen 325 Mg Tablet PO 01/22/25 18:10 Q6H PRN Mild Pain (1-3) & Fever >101.5 Hydrocodone Bitart/Acetaminophen 1 tab 12/23/24 18:25 12/24/24 20:33 Hydrocodone/Apap 5/325 Tablet PO 12/28/24 18:24 1 tab Q6HR PRN Administration PAIN SCALE 4-10(Mod-Sev Albuterol/Ipratropium 3 ml 12/23/24 18:28 Albuterol/Ipratropium (Duoneb) Rt Fanny 3 Ml Nebu INH 01/22/25 18:59 Q4HRRT PRN SOB/Wheeze Amiodarone HCl 200 mg 12/24/24 10:15 12/25/24 09:29 Amiodarone Hcl 200 Mg Tablet PO 01/23/25 10:14 200 mg BID PEPPER Administration Finasteride 5 mg 12/24/24 09:00 12/25/24 09:29 Finasteride 5 Mg Tablet PO 01/23/25 08:59 5 mg QDAY PEPPER Administration Gabapentin 300 mg 12/23/24 22:00 12/25/24 04:20 Gabapentin 100 Mg Capsule PO 01/22/25 21:59 Not Given TID PEPPER Lactated Ringer's 1,000 mls @ 70 mls/hr 12/23/24 18:15 12/25/24 00:29 Lactated Ringers IV 01/22/25 18:14 70 mls/hr .[id number] PEPPER Administration Heparin Sodium/Dextrose 25,000 unit in 250 mls @ 7.272 mls/hr 12/24/24 08:30 12/25/24 06:00 Heparin In D5w Ivpb IV 01/07/25 08:29 0 units/kg/hr .Q24H PEPPER 0 mls/hr Titration Protocol 12 UNITS/KG/HR Metoprolol Succinate 50 mg 12/24/24 09:00 12/25/24 09:29 Metoprolol Succinate Xl 25 Mg Tabcr PO 01/23/25 08:59 50 mg DAILY PEPPER Administration Ondansetron HCl 4 mg 12/23/24 18:11 12/24/24 15:41 Ondansetron Inj 2 Mg/Ml Inj 2 Ml IV 01/22/25 18:10 4 mg Q6H PRN Administration NAUSEA OR VOMITING Protocol Tamsulosin HCl 0.8 mg 12/24/24 15:00 12/25/24 09:29 Tamsulosin Hcl 0.4 Mg Capsule PO 01/23/25 14:59 0.8 mg QDAY PEPPER Administration Plan Assessment and plan: Summary: Mr. Johnston is a 84-year-old male with past medical history of coronary artery disease status post CABG, hyperlipidemia, hypertension, chronic vertigo, COPD, prostate cancer status post chemotherapy who presented to [facility] emergency department on with a chief complaint of diarrhea. Patient reported that he has been having diarrhea for the last month, reports having poor appetite decreased p.o. intake and significant unintentional weight loss of about 20 pounds in the last 1 month. Patient is admitted to hospital for further workup. #Paroxysmal atrial fibrillation, new onset Patient had atrial fibrillation on telemetry, old EKGs reviewed, EKG from November 2024 shows atrial fibrillation. Cardiology consulted. [id number] Score: 4 points and HAS BLED score 2 points Plan: - Will continue metoprolol succinate 50 mg daily - Continue amiodarone 200 mg twice daily per cardiology recommendations. - Heparin drip then Eliquis after biopsy - Ordered echocardiogram to assess LV/RV function, left atrial diameter. #Chronic diarrhea #Unintentional weight loss #Poor p.o. intake Patient has chronic diarrhea for the last month, reports having poor appetite decreased p.o. intake and significant unintentional weight loss of about 20 pounds in the last 1 month. Was given 2 L bolus in ED, CRP 8.8 ESR 28 Plan: -IV Maintenance fluid -Stool WBC -Stool Culture -Giardia and fecal calprotectin -Cardiac diet, monitor Bowel movements -Zofran PRN for nausea #Electrolyte abnormality #Hypokalemia Potassium 3.3 on presentation -Correct and replace electolytes as needed #Acute kidney injury BUN 12, Cr 0.7, GFR >60, possible LAUREN considering significant weight loss/muscle loss. -IV Maintenance fluid -Avoid Nephrotoxic agents -Follow renal panel in AM #8 mm right supraclavicular hypermetabolic lymph node #6 mm hypermetabolic high right paratracheal lymph node #20 mm hypermetabolic right pretracheal lymph node #Extensive bulky para-aortic pericaval and mesenteric hypermetabolic lymphadenopathy. #History of prostate cancer status postchemotherapy Concern of lymphoma - Patient will be scheduled for IR guided biopsy in a.m., will hold heparin drip prior to procedure - Oncology consulted, appreciate recommendations #Thoracic aortic aneurysm #Infrarenal abdominal aorta aneurysm #stent graft placement, endoluminal stent graft CT abdomen pelvis 11/06/2024 shows aortoiliac endoluminal stent, infrarenal abdominal aorta aneurysm dilatation 5.7 cm PET scan shows medial atrial dimension ascending thoracic aorta 5.1 cm, medial atrial dimension descending thoracic aorta 4 cm - Patient follows Dr. Johnson superintendent tests outpatient - Maintain strict blood pressure control #Hypertension #Hyperlipidemia #Coronary artery disease status post CABG #COPD Pending Med rec. Blood Pressure soft, will monitor Duoneb PRN DVT prophylaxis: Heparin GI prophylaxis: Not indicated Diet:Cardiac Lines: Peripheral IV Code status: Full Code Case discussed with Attending Dr. Willson and Frank PGY2. Zuleika Tian PGY1 Disclaimer: This note was dictated by speech recognition. Minor errors in wet room worker may be present due to voice recognition software. Attending Provider Attestation/Addendum I have discussed and was present for the essential components of the history, physical examination, diagnosis, and treatment plan with the resident. I agree with the patient's care as documented by the resident and amended herein by me. Twan Willson, DO. Although this document has been carefully reviewed, there may still be some phonetic and other typographical errors. These errors are purely grammatical due to imperfections in the software program and should not be construed in any way to compromise the substance of the patient's medical care during this visit.
--- NOTE | 2024-12-25 13:28 | ESPR_ITS ---
<Statement entered by Henny Dempsey MD - 12/27/24 22:32> I evaluated the patient's and appears to be doing clinically much better cardiac echo showed left ventricle function preserved feeling a lot better no chest pain shortness of breath biopsy was successful patient can be discharged home whenever he is stable to have follow-up with Dr. Johnson his regular backhoe operator. I evaluated the patient with resident physician Dr. Zahra Carrillo PGY2 agree with the treatment plan recommendation as documented Documentation for date of: 12/25/24 Subjective Subjective Interval history: No acute events overnight.?Patient seen and examined at bedside this afternoon. He went for mesenteric lymph node biopsy with IR and reported that it went well, no complaints of pain. Labs and vitals were reviewed.?24-hour telemetry reviewed. Patient remains in afib but rate controlled 60-70s. BP normal range. Patient is saturating well on room air. No further complaints at this time. Patient denies episodes of angina today. Review of systems otherwise negative except what is mentioned above. Exam Vital Signs Temp Pulse Resp BP Pulse Ox O2 Del Method 97.5 F 72 18 126/78 94 L Room Air 12/25/24 07:22 12/25/24 09:29 12/25/24 07:22 12/25/24 09:29 12/25/24 07:22 12/25/24 07:22 Narrative Exam Physical Exam General: Awake and in no acute distress. Conversational and non-toxic appearing. HEENT: Normocephalic, atraumatic, mucous membranes moist. Heart: Regular rate and rhythm, normal S1 and S2, no murmurs. Lungs: Clear to auscultation with no wheezing or crackles. Abdomen: Bandage in the mid-abdomen where biopsy was taken today. Soft, nondistended, nontender, positive bowel sounds. ?No guarding or rebound tenderness. Neurologic: Alert and oriented x3, no gross neurological deficit, and patient able to move all 4 extremities. Extremities: No edema. Skin: No rash or ecchymoses. Objective Labs 12/26/24 05:18 12/26/24 05:18 Labs: Laboratory Results - last 24 hr 12/24/24 12/24/24 12/24/24 12:33 16:21 23:15 WBC RBC Hgb Hct MCV MCH MCHC RDW Std Deviation Plt Count Neut % (Auto) Lymph % (Auto) [place] % (Auto) Eos % (Auto) Baso % (Auto) Neut # (Auto) Lymph # (Auto) [place] # (Auto) Eos # (Auto) Baso # (Auto) Immature Gran # (Auto) Absolute Nucleated RBC Immature Gran % Nucleated RBC % PT INR APTT 35.8 48.7 H D Sodium Potassium Chloride Carbon Dioxide Anion Gap BUN Creatinine Estim Creat Clear Calc eGFR BUN/Creatinine Ratio Glucose Calculated Osmolality Calcium Corrected Calcium Phosphorus Magnesium Total Bilirubin AST ALT Alkaline Phosphatase Total Protein Albumin Globulin Albumin/Globulin Ratio Stool for White Cells Negative 12/25/24 06:54 WBC 5.3 RBC 4.00 L Hgb 11.5 L Hct 35.5 L MCV 89 MCH 28.8 MCHC 32.4 RDW Std Deviation 48.8 H Plt Count 320 Neut % (Auto) 73 Lymph % (Auto) 12 [place] % (Auto) 10 Eos % (Auto) 4 Baso % (Auto) 1 Neut # (Auto) 3.9 Lymph # (Auto) 0.6 L [place] # (Auto) 0.5 Eos # (Auto) 0.2 Baso # (Auto) 0.0 Immature Gran # (Auto) 0.03 H Absolute Nucleated RBC 0.00 Immature Gran % 1 H Nucleated RBC % 0 PT 12.4 H INR 1.1 APTT Sodium 142 Potassium 4.2 Chloride 105 Carbon Dioxide 30.2 Anion Gap 7 BUN 5 L Creatinine 0.6 Estim Creat Clear Calc 78.6 eGFR > 60 BUN/Creatinine Ratio 8 L Glucose 91 Calculated Osmolality 280 Calcium 8.9 Corrected Calcium 9.2 Phosphorus 3.2 Magnesium 2.1 Total Bilirubin 0.7 AST 21 ALT < 7 L Alkaline Phosphatase 64 Total Protein 6.0 Albumin 3.6 Globulin 2.4 Albumin/Globulin Ratio 1.5 Stool for White Cells Quality Measures Quality Measures none Advance care planning discussed with:: patient Assessment & Plan Assessment Current Active Medications: Generic Name Dose Route Start Last Admin Trade Name Freq PRN Reason Stop Dose Admin Acetaminophen 650 mg 12/23/24 18:11 Acetaminophen 325 Mg Tablet PO 01/22/25 18:10 Q6H PRN Mild Pain (1-3) & Fever >101.5 Hydrocodone Bitart/Acetaminophen 1 tab 12/23/24 18:25 12/24/24 20:33 Hydrocodone/Apap 5/325 Tablet PO 12/28/24 18:24 1 tab Q6HR PRN Administration PAIN SCALE 4-10(Mod-Sev Albuterol/Ipratropium 3 ml 12/23/24 18:28 Albuterol/Ipratropium (Duoneb) Rt Fanny 3 Ml Nebu INH 01/22/25 18:59 Q4HRRT PRN SOB/Wheeze Amiodarone HCl 200 mg 12/24/24 10:15 12/25/24 09:29 Amiodarone Hcl 200 Mg Tablet PO 01/23/25 10:14 200 mg BID PEPPER Administration Finasteride 5 mg 12/24/24 09:00 12/25/24 09:29 Finasteride 5 Mg Tablet PO 01/23/25 08:59 5 mg QDAY PEPPER Administration Gabapentin 300 mg 12/23/24 22:00 12/25/24 04:20 Gabapentin 100 Mg Capsule PO 01/22/25 21:59 Not Given TID PEPPER Lactated Ringer's 1,000 mls @ 70 mls/hr 12/23/24 18:15 12/25/24 00:29 Lactated Ringers IV 01/22/25 18:14 70 mls/hr .[id number] PEPPER Administration Heparin Sodium/Dextrose 25,000 unit in 250 mls @ 7.272 mls/hr 12/24/24 08:30 12/25/24 06:00 Heparin In D5w Ivpb IV 01/07/25 08:29 0 units/kg/hr .Q24H PEPPER 0 mls/hr Titration Protocol 12 UNITS/KG/HR Metoprolol Succinate 50 mg 12/24/24 09:00 12/25/24 09:29 Metoprolol Succinate Xl 25 Mg Tabcr PO 01/23/25 08:59 50 mg DAILY PEPPER Administration Ondansetron HCl 4 mg 12/23/24 18:11 12/24/24 15:41 Ondansetron Inj 2 Mg/Ml Inj 2 Ml IV 01/22/25 18:10 4 mg Q6H PRN Administration NAUSEA OR VOMITING Protocol Tamsulosin HCl 0.8 mg 12/24/24 15:00 12/25/24 09:29 Tamsulosin Hcl 0.4 Mg Capsule PO 01/23/25 14:59 0.8 mg QDAY PEPPER Administration Plan 84-year-old male with a longstanding history of known CAD status post coronary artery bypass graft surgery about 5 years ago and history of AAA ELG EVAR graft placement, hypertension, hypercholesterolemia, failure to thrive, prostate carcinoma status post chemotherapy in the past who presented to the hospital with severe weakness and diarrhea on 12/23/2024. He was subsequently admitted and cardiology was consulted for new onset afib. #Paroxysmal atrial fibrillation #History of abdominal aortic aneurysm, s/p stent graft placement, endoluminal stent graft #Lymphadenopathy, possible lymphoma #Coronary artery disease s/p bypass graft surgery #Angina pectoris, stable #Hypertension #Hyperlipidemia Patient follows with Dr. Johnson in [place]. Patient reports AAA graft placed by Dr. Morrison with [facility]. [id number] score is 4 -Continue amiodarone 200 mg BID -Continue metoprolol XL 50 mg qday -May start Eliquis 5 mg BID if procedures are completed -Continue home atorvastatin 80 mg HS -Continue home ezetimibe 10 mg qday -Continue home clopidogrel 75 mg qday Rest of conditions to continue current management per primary team: #Chronic diarrhea #Suspected malignancy #Cervical, paraaortic, pericaval, and mesenteric lymphadenopathy #Poor intake and unintended weight loss Patient was discussed with the Cardiology attending, Dr. Dempsey. Thank you for allowing us to participate in the care of this patient. Cordelia Carrillo, PGY-2
[2024-12-25] MEDS: fentaNYL CIT INJ 50 mCg/ML AMP 2ML 75 MCG IVP (14:05)
[2024-12-25] MEDS: GABAPENTIN 100 MG CAPSULE 300 MG PO ×2 (14:59→21:45)
[2024-12-25] MEDS: Heparin/D5w 25K 250 ML Ivpb 25,000 UNIT/250 ML BAG 10.908 UNIT IV (21:50)
[2024-12-25] MEDS: HYDROcodone/APAP 5/325 TABLET 1 TAB PO (22:57)
[2024-12-26] VITALS: BP 113/80; PULSE 79; RESP 17; TEMP 36.1; O2SAT 94
[2024-12-26 04:00] VITALS: BP 128/59; PULSE 67; RESP 16; TEMP 36.2; O2SAT 96
[2024-12-26] MEDS: GABAPENTIN 100 MG CAPSULE 300 MG PO (05:37)
[2024-12-26 05:55] LABS: Basophils % (Auto) 1 % (0-2.5); Eosinophils # (Auto) 0.3 Thou/mm3 (0.0-0.5); Eosinophils % (Auto) 6 % (0-10); Hematocrit 34.9 % (41.0-53.0); Hemoglobin 11.5 g/dL (13.5-16.0); Immature Granulocytes % (Auto) 0 % (0-0); Immature Granulocytes Auto 0.02 Thou/mm3 (0.00-0.00); Lymphocytes # (Auto) 0.9 Thou/mm3 (1.0-4.8); Lymphocytes % (Auto) 17 % (10-50); Mean Corpuscular Hemoglobin 28.5 pg (25.0-35.0); Mean Corpuscular Volume 87 fL (80-100); Monocytes # (Auto) 0.5 Thou/mm3 (0.0-0.8); Monocytes % (Auto) 10 % (0-12); Neutrophils # (Auto) 3.5 Thou/mm3 (1.8-7.7); Neutrophils % (Auto) 67 % (37-80); Nucleated Red Blood Cell % 0 /100 WBC (0); Platelet Count 307 Thou/mm3 (140-440); RDW Standard Deviation 47.5 fL (35.1-43.9); Red Blood Count 4.03 Miln/mm3 (4.50-5.90); White Blood Count 5.2 Thou/mm3 (3.8-10.6)
[2024-12-26 06:17] LABS: INR 1.1 (0.9-1.3); Partial Thromboplastin Time 64.2 Seconds (22.0-36.0); Prothrombin Time 12.3 Seconds (9.0-12.2)
[2024-12-26 06:27] LABS: Alanine Aminotransferase < 7 U/L (10-49); Albumin, Serum 3.6 gm/dL (3.4-4.8); Albumin/Globulin Ratio 1.6 (1.2-2.2); Alkaline Phosphatase 63 U/L (46-116); Anion Gap 9 (7-16); Aspartate Amino Transferase 17 U/L (0-34); BUN/Creatinine Ratio 12 Ratio (12-20); Bilirubin,Total 0.6 mg/dL (0.3-1.2); Blood Urea Nitrogen 7 mg/dL (9-23); Calcium (Corrected) 9.3 mg/dL (8.5-10.1); Carbon Dioxide 27.3 mMol/L (20.0-31.0); Chloride 106 mMol/L (98-107); Creatinine (Component) 0.6 mg/dL (0.6-1.3); Estimated Creatinine Clearance 78.6 mL/min (>60); Globulin 2.2 gm/dL (2.3-3.5); Glucose 93 mg/dL (74-106); Magnesium 2.1 mg/dL (1.6-2.6); Osmolality,Calculated 281 (275-295); Phosphorous 3.5 mg/dL (2.4-5.1); Potassium 3.7 mMol/L (3.4-5.1); Sodium 142 mMol/L (136-145); Total Protein 5.8 gm/dL (5.7-8.2); eGFR > 60 See Note
[2024-12-26 08:00] VITALS: BP 119/68; PULSE 64; PULSE 91; RESP 23; TEMP 36.7; O2SAT 95
[2024-12-26] MEDS: FINASTERIDE 5 MG TABLET PO (08:45)
[2024-12-26 08:46] VITALS: BP 119/68; PULSE 64
[2024-12-26] MEDS: METOPROLOL SUCCINATE XL 25 MG TABCR 50 MG PO (08:46)
[2024-12-26] MEDS: AMIODARONE HCL 200 MG TABLET PO (08:46)
[2024-12-26] MEDS: EZETIMIBE 10 MG TABLET PO (08:46)
[2024-12-26] MEDS: TAMSULOSIN HCL 0.4 MG CAPSULE 0.8 MG PO (08:46)
[2024-12-26] MEDS: CLOPIDOGREL BISULFATE 75 MG TABLET PO (08:47)
--- NOTE | 2024-12-26 10:00 | PD.RESDS ---
Planned Discharge Date 12/27/24 DS: Providers Provider Date of admission: 12/23/24 18:12 Primary care physician: Jameson Tucker MD Admitting Provider: Channing Walton MD Attending Provider on Admission: Viral Willson DO Consults: 12/23/24 16:19 Consult to Oncology Stat Comment: Rule out malignancy Consulting Provider: Gucci Padilla 12/24/24 07:56 Consult to Cardiology Stat Comment: Atrial Fibrillation Consulting Provider: Henny Dempsey Attending Provider on DC: Jace Marie MD Discharging Provider: Jace Marie MD DS: Diagnosis Problem List Completed Was Problem List Reviewed/Reconciled?: Yes Hospital Course Hospital Course Hospital course: Mr. Johnston a 84-year-old male patient with significant medical history of coronary artery disease status post CABG, hyperlipidemia, hypertension, chronic vertigo, COPD, prostate cancer status post chemotherapy who presented to [facility] emergency department on 12/23/2024 with a chief complaint of diarrhea. Patient reported that he has been having diarrhea for the last month, reports having poor appetite decreased p.o. intake and significant unintentional weight loss of about 20 pounds in the last 1 month. Patient reported that he was referred from his primary care physician to for workup had CT abdomen pelvis revealing cholelithiasis, infrarenal AAA and extensive mesenteric abdominal lymphadenopathy suggestive of lymphoma. Patient was evaluated by Dr. Padilla and had a PET scan which revealed hypermetabolic adenopathy involving periodic pericaval mesenteric areas along the right peritracheal high right paratracheal and right supraclavicular node. Patient was admitted for intractable diarrhea with high concern for malignancy. Oncologist Dr. Padilla was consulted and patient underwent percutaneous biopsy of mesenteric lymph nodes. While in hospital patient also had new onset atrial fibrillation for which cardiology Dr. Dempsey was consulted. Over time patient became stable and was deemed safe to be discharged home on amiodarone and eliquis. Patient was advised to follow up with Dr. Padilla for further results of biopsy. Discharge summary was reviewed with my attending Dr. Willson. Jace Díaz, PGY-2 #Paroxysmal atrial fibrillation, new onset #Chronic diarrhea #Acute kidney injury #History of prostate cancer status postchemotherapy #Thoracic aortic aneurysm #Infrarenal abdominal aorta aneurysm #Hypertension #Hyperlipidemia #hx of Coronary artery disease status post CABG #COPD Time Spent with Patient Time attestation: Total time spent providing and/or coordinating discharge services: Time spent: Greater than 30 minutes Exam Vital Signs Temp Pulse Resp BP Pulse Ox O2 Del Method O2 Flow Rate 97.3 F 75 15 120/72 95 Room Air 3 12/26/24 12:00 12/26/24 12:00 12/26/24 12:00 12/26/24 12:00 12/26/24 12:12/26/24 12:12/25/24 14:20 Narrative Exam General: Awake and in no acute distress. Conversational and non-toxic appearing. HEENT: Normocephalic, atraumatic, mucous membranes moist. Heart: Regular rate and rhythm, no murmurs. Lungs: Clear to auscultation with no wheezing or crackles. Abdomen: Soft, nondistended, nontender, positive bowel sounds. ?No guarding or rebound tenderness. Neurologic: Alert and oriented x3, no gross neurological deficit, and patient able to move all 4 extremities. Extremities: No edema. Discharge Plan Plan Patient Disposition: HOME (Self Care) Patient condition on transfer: Stable Prescriptions/Referrals Prescriptions/Med Rec: New amiodarone 200 mg Tablet 200 mg PO BID 30 Days Qty: 60 2RF apixaban 5 mg tablet 5 mg PO BID 30 Days Qty: 60 3RF Continued tamsulosin [Flomax] 0.4 MG capsule,extended release 24hr 0.8 mg PO QDAY Qty: 0 finasteride [Proscar] 5 MG tablet 5 mg PO QDAY Qty: 0 atorvastatin 80 mg Tablet 80 mg PO QDAY clopidogrel 75 mg tablet 75 mg PO DAILY Patient Comments: TAKE 1 TABLET BY MOUTH ONCE DAILY FOR 90 DAYS nitroglycerin 0.4 mg tablet, sublingual 0.4 mg BUCCAL PRN MDD 3 PRN (Reason: Chest Pain) Patient Comments: DISSOLVE ONE TABLET UNDER THE TONGUE NEEDED FOR CHEST PAIN. DO NOT EXCEED MORE THAN 3 TIMES IN A DAY FOR 25 DAYS. ranolazine 500 mg tablet extended release 12 hr 1,000 mg PO DAILY Patient Comments: TAKE 1 TABLET BY MOUTH TWICE DAILY metoprolol succinate 50 mg tablet extended release 24 hr 50 mg PO DAILY Patient Comments: TAKE 1 TABLET BY MOUTH ONCE DAILY meclizine 25 mg tablet 50 mg PO BID MDD 100 mg PRN (Reason: dizziness) Qty: 14 0RF gabapentin 300 mg capsule 300 mg PO TID Patient Comments: TAKE ONE CAPSULE BY MOUTH THREE TIMES DAILY FOR NERVE PAIN ezetimibe 10 mg tablet 10 mg PO QDAY Patient Comments: TAKE ONE TABLET BY MOUTH EVERY DAY FOR CHOLESTEROL hydrocodone-acetaminophen 5-325 mg tablet 1 tab PO Q6H PRN (Reason: pain) Patient Comments: TAKE ONE TABLET BY MOUTH EVERY 6 HOURS NEEDED FOR PAIN Discontinued isosorbide mononitrate 30 mg tablet extended release 24 hr 30 mg PO DAILY Patient Comments: TAKE 1 TABLET BY MOUTH ONCE DAILY IN THE MORNING Referrals: Jameson Tucker MD [Primary Care Provider] - Patient/Caregiver Discharge Instructions Other Discharge Activity Instructions:: Continue amiodarone 200 mg twice daily and Eliquis 5 mg twice daily for newly diagnosed atrial fibrillation. Stop isosorbide mononitrate, use ranolazine for management of angina, take nitroglycerin as needed. Continue all other home medications. Follow-up with oncologist Dr. Padilla for the results of your biopsy. Follow-up with primary care physician in 1 week for the result of stool culture and other stool studies. Return to emergency department if symptoms worsen. Education Materials: Treating Diarrhea, Self-Care for Vomiting and Diarrhea, Understanding Atrial Fibrillation Print Language: Japanese Stand Alone Forms: [employer] Award Info., Patient Portal Info Letter Discharge Order Discharge Orders: Discharge (Routine); Ordered 12/26/24 Ordered By: Jace Marie Quality Discharge Quality Measures VTE prophylaxis Attestestation Attestation I have discussed and was present for the essential components of the discharge history, physical examination, diagnosis, and discharge treatment plan with the resident. I agree with the patient's discharge care as documented by the resident and amended herein by me. Twan Willson, . The patient understood all discharge instructions, all questions were answered satisfactorily. The patient was instructed to return to the Emergency Department is symptoms worsened or persisted. Patient was stable, afebrile, tolerating p.o. intake and ambulatory at time of discharge home. Of note, the patient did have a CT-guided biopsy of a mesenteric lymph node, pathology results on 12/26 demonstrated cascading granulomatous inflammation, no lymphoid tissue present, no evidence of prostate cancer, negative for fungal elements by GMS special stain and negative for acid-fast organisms by AFB special stain. Stewart CK was negative. We will call the patient with results, he will also need f/u with oncology on an outpt basis. The patient understood all instructions and plan Although this document has been carefully reviewed, there may still be some phonetic and other typographical errors. These errors are purely grammatical due to imperfections in the software program and should not be construed in any way to compromise the substance of the patient's medical care during this visit.
--- NOTE | 2024-12-26 11:26 | PC.SS ---
SS met with patient regarding his d/c plan.? Pt is alert/oriented.? Pt was admitted for AMS/SOB.? Pt confirmed demographic and contact information is correct on facesheet.? Pt resides alone.? Pt states his dtr will be coming home to stay with him and his neighbors will also being assisting pt at home.? Pt states he has 2 different walkers at home if needed.? Pt ambulates independently without assistance or DME.? Pt is ok with all ADLs.? Patient?s pharmacy of choice is [facility].? Pt named his dtr, Aury Johnston medical decision maker if he is unable.? SS provided pt with verbal options for d/c to home or SNF.? Patient?s choice is to return home upon d/c.? Pt states his dtr will be providing transportation home upon dc.? Pt followed up with PCP last week. D/C plan:? Return home Next of Kin:? Aury Johnston, dtr, phone# [phone] PCP:? Dr. Jameson Tucker Address:? Correct on facesheet
[2024-12-26 12:00] VITALS: BP 120/72; PULSE 75; RESP 15; TEMP 36.3; O2SAT 95
[2024-12-26] MEDS: APIXABAN 2.5 MG TABLET 5 MG PO (12:27)
[2024-12-26 13:49] LABS: Partial Thromboplastin Time 51.9 Seconds (22.0-36.0)
--- NOTE | 2024-12-26 14:34 | ESPR_ITS ---
<Statement entered by Henny Dempsey MD - 01/01/25 08:34> The patient examined evaluated by me patient is clinically stable A-fib rate controlled well does not complain of any chest pain shortness of breath cardiac echo findings are reviewed unremarkable patient's can be discharged home on Eliquis to see Dr. 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 Evaluated the patient with PGY 2 Dr. Zahra Carrillo agree with the treatment plan recommendation as outlined Documentation for date of: 12/26/24 Subjective Subjective Interval history: No acute events overnight.?Patient seen and examined at bedside this afternoon.?Patient is feeling well. He reports that he feels stronger and more steady on his feet. He is eating slightly more. Patient is being discharged home today. Labs and vitals were reviewed. BP has been normal range, HR maintains in afib but rate controlled in the 60-70s. He will be discharged on Eliquis 5 mg BID and instructed to continue his Plavix. He will start amiodarone 200 mg BID. He was instructed to follow closely with his PCP and Dr. Johnson. Review of systems otherwise negative except what is mentioned above. Exam Vital Signs Temp Pulse Resp BP Pulse Ox O2 Del Method O2 Flow Rate 97.3 F 75 15 120/72 95 Room Air 3 12/26/24 12:00 12/26/24 12:00 12/26/24 12:00 12/26/24 12:00 12/26/24 12:00 12/26/24 12:00 12/25/24 14:20 Narrative Exam Physical Exam General: Awake and in no acute distress. Conversational and non-toxic appearing. HEENT: Normocephalic, atraumatic, mucous membranes moist. Heart: Regular rate and rhythm, normal S1 and S2, no murmurs. Lungs: Clear to auscultation with no wheezing or crackles. Abdomen: Soft, nondistended, nontender, positive bowel sounds. ?No guarding or rebound tenderness. Neurologic: Alert and oriented x3, no gross neurological deficit, and patient able to move all 4 extremities. Extremities: No edema. Skin: No rash or ecchymoses. Objective Labs 12/26/24 05:18 12/26/24 05:18 Labs: Laboratory Results - last 24 hr 12/25/24 12/26/24 12/26/24 21:04 05:18 12:25 WBC 5.2 RBC 4.03 L Hgb 11.5 L Hct 34.9 L MCV 87 MCH 28.5 MCHC 33.0 RDW Std Deviation 47.5 H Plt Count 307 Neut % (Auto) 67 Lymph % (Auto) 17 Whitley % (Auto) 10 Eos % (Auto) 6 Baso % (Auto) 1 Neut # (Auto) 3.5 Lymph # (Auto) 0.9 L Whitley # (Auto) 0.5 Eos # (Auto) 0.3 Baso # (Auto) 0.0 Immature Gran # (Auto) 0.02 H Absolute Nucleated RBC 0.00 Immature Gran % 0 Nucleated RBC % 0 PT 12.3 H INR 1.1 APTT 40.0 H 64.2 H D 51.9 H D Sodium 142 Potassium 3.7 D Chloride 106 Carbon Dioxide 27.3 Anion Gap 9 BUN 7 L Creatinine 0.6 Estim Creat Clear Calc 78.6 eGFR > 60 BUN/Creatinine Ratio 12 Glucose 93 Calculated Osmolality 281 Calcium 9.0 Corrected Calcium 9.3 Phosphorus 3.5 Magnesium 2.1 Total Bilirubin 0.6 AST 17 ALT < 7 L Alkaline Phosphatase 63 Total Protein 5.8 Albumin 3.6 Globulin 2.2 L Albumin/Globulin Ratio 1.6 Quality Measures Quality Measures none Advance care planning discussed with:: patient Assessment & Plan Assessment Current Active Medications: Generic Name Dose Route Start Last Admin Trade Name Freq PRN Reason Stop Dose Admin Acetaminophen 650 mg 12/23/24 18:11 Acetaminophen 325 Mg Tablet PO 01/22/25 18:10 Q6H PRN Mild Pain (1-3) & Fever >101.5 Hydrocodone Bitart/Acetaminophen 1 tab 12/23/24 18:25 12/24/24 20:33 Hydrocodone/Apap 5/325 Tablet PO 12/28/24 18:24 1 tab Q6HR PRN Administration PAIN SCALE 4-10(Mod-Sev Albuterol/Ipratropium 3 ml 12/23/24 18:28 Albuterol/Ipratropium (Duoneb) Rt Fanny 3 Ml Nebu INH 01/22/25 18:59 Q4HRRT PRN SOB/Wheeze Amiodarone HCl 200 mg 12/24/24 10:15 12/25/24 09:29 Amiodarone Hcl 200 Mg Tablet PO 01/23/25 10:14 200 mg BID PEPPER Administration Finasteride 5 mg 12/24/24 09:00 12/25/24 09:29 Finasteride 5 Mg Tablet PO 01/23/25 08:59 5 mg QDAY PEPPER Administration Gabapentin 300 mg 12/23/24 22:00 12/25/24 04:20 Gabapentin 100 Mg Capsule PO 01/22/25 21:59 Not Given TID PEPPER Lactated Ringer's 1,000 mls @ 70 mls/hr 12/23/24 18:15 12/25/24 00:29 Lactated Ringers IV 01/22/25 18:14 70 mls/hr .[id number] PEPPER Administration Heparin Sodium/Dextrose 25,000 unit in 250 mls @ 7.272 mls/hr 12/24/24 08:30 12/25/24 06:00 Heparin In D5w Ivpb IV 01/07/25 08:29 0 units/kg/hr .Q24H PEPPER 0 mls/hr Titration Protocol 12 UNITS/KG/HR Metoprolol Succinate 50 mg 12/24/24 09:00 12/25/24 09:29 Metoprolol Succinate Xl 25 Mg Tabcr PO 01/23/25 08:59 50 mg DAILY PEPPER Administration Ondansetron HCl 4 mg 12/23/24 18:11 12/24/24 15:41 Ondansetron Inj 2 Mg/Ml Inj 2 Ml IV 01/22/25 18:10 4 mg Q6H PRN Administration NAUSEA OR VOMITING Protocol Tamsulosin HCl 0.8 mg 12/24/24 15:00 12/25/24 09:29 Tamsulosin Hcl 0.4 Mg Capsule PO 01/23/25 14:59 0.8 mg QDAY PEPPER Administration Plan 84-year-old male with a longstanding history of known CAD status post coronary artery bypass graft surgery about 5 years ago and history of AAA ELG EVAR graft placement, hypertension, hypercholesterolemia, failure to thrive, prostate carcinoma status post chemotherapy in the past who presented to the hospital with severe weakness and diarrhea on 12/23/2024. He was subsequently admitted and cardiology was consulted for new onset afib. #Paroxysmal atrial fibrillation #History of abdominal aortic aneurysm, s/p stent graft placement, endoluminal stent graft #Lymphadenopathy, possible lymphoma #Coronary artery disease s/p bypass graft surgery #Angina pectoris, stable #Hypertension #Hyperlipidemia Patient follows with Dr. Johnson in [place]. Patient reports AAA graft placed by Dr. Morrison with [facility]. [id number] score is 4 -Continue amiodarone 200 mg BID -Continue metoprolol XL 50 mg qday -Discharge on Eliquis 5 mg BID -Continue home atorvastatin 80 mg HS -Continue home ezetimibe 10 mg qday -Continue home clopidogrel 75 mg qday Rest of conditions to continue current management per primary team: #Chronic diarrhea #Suspected malignancy #Cervical, paraaortic, pericaval, and mesenteric lymphadenopathy #Poor intake and unintended weight loss Patient was discussed with the Cardiology attending, Dr. Dempsey. Thank you for allowing us to participate in the care of this patient. Cordelia Carrillo, PGY-2
[2024-12-29 06:59] LABS: Giardia Result NOT DETECTED
[2025-01-01 08:18] LABS: Calprotectin, Stool* 190 mcg/g
== END 2024-12-26 13:40 | disposition home or self-care (01) | DRG 803 ==
LOC: SERX 17:51 → SERHOLD 18:27 → S3NX 20:57 → S2NX 12-24 12:02
PROVIDERS: Nurse Practitioner Family; Radiology Diagnostic Radiology; Student in an Organized Health Care Education/Training Program; Admitting Provider Student in an Organized Health Care Education/Training Program; Emergency Provider Emergency Medicine; PCP Family Medicine; Visit Provider Student in an Organized Health Care Education/Training Program
DX: R59.0 Localized enlarged lymph nodes (principal); N17.9 Acute kidney failure, unspecified; Z68.1 Body mass index [BMI] 19.9 or less, adult; R63.4 Abnormal weight loss; I25.119 Atherosclerotic heart disease of native coronary artery with unspecified angina pectoris; Z85.46 Personal history of malignant neoplasm of prostate; K52.9 Noninfective gastroenteritis and colitis, unspecified; E78.00 Pure hypercholesterolemia, unspecified; I10 Essential (primary) hypertension; K80.20 Calculus of gallbladder without cholecystitis without obstruction; I71.43 Infrarenal abdominal aortic aneurysm, without rupture; J44.89 Other specified chronic obstructive pulmonary disease; R42 Dizziness and giddiness; E87.6 Hypokalemia; I71.20 Thoracic aortic aneurysm, without rupture, unspecified; R62.7 Adult failure to thrive; I48.0 Paroxysmal atrial fibrillation; Z92.21 Personal history of antineoplastic chemotherapy; Z95.1 Presence of aortocoronary bypass graft; Z87.891 Personal history of nicotine dependence; Z88.0 Allergy status to penicillin; Z79.899 Other long term (current) drug therapy; Z86.79 Personal history of other diseases of the circulatory system; Z79.02 Long term (current) use of antithrombotics/antiplatelets
CPT/HCPCS: 36415; 77012; 80053; 81001; 83690; 83735; 83993; 84100; 84443; 85025; 85610; 85652; 85730; 86140; 86850; 86900; 86901; 87015; 87045; 87046; 87077; 87205; 87329; 87493; 87899; 93005; 93225; 93306; 96361; 96374; 96375; 99285; J1643; J1644; J2270; J2405; J3010; J3480; J7120; A9270

== ENCOUNTER 2025-01-02 11:29 | Outpatient (RCR) | payer MEDICARE, BC, SELFPAY ==
--- NOTE | 2024-12-19 09:47 | CTCCONSULT_ITS ---
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 Jameson Tucker MD Reason for consultation. Suspected malignancy chest abdominal region. History of Present Illness: Patient is an 84-year-old gentleman who had been experiencing abdominal pain weight loss of greater than 10% in [address] abdomen pelvis 11/06/2024 revealing cholelithiasis infrarenal aneurysm abdominal aorta and extensive mesenteric abdominal lymphadenopathy suggestive of lymphoma or metastatic lymphadenopathy.PET scan 12/12/2024 revealed widespread hypermetabolic adenopathy involving periodic pericaval mesenteric areas along with right pretracheal high right pretracheal and right supra Aidan node. Recent labs 11/08/2024 show unremarkable PSA, thyroid functions LFTs RFTs and CBC. Brain MRI 12/11/2024 negative for any mass or acute infarct. Patient has had recent weight loss and night sweats but no fevers. Past Medical History: Asthma COPD high blood pressure prostatism Meds. Isosorbide clopidogrel finasteride temocillin atorvastatin gabapentin meclizine ranolazine Allergies none to meds Family history. 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 Denies smoking drinking at [employer] is disabled Review of Systems: Greater than 10% weight loss in 3 months with night sweats Physical Exam: General: Tired appearing gentleman in no acute distress HEENT: Atraumatic normocephalic extraocular is intact no oral lesions no cervical or supraclavicular adenopathy. CV: Chest clear to auscultation heart regular rate and rhythm ABD: Soft no organomegaly or tenderness EXT: No sinus clubbing or edema Assessment: 1. Likely malignancy involving abdominal region and chest. 2. CT-guided biopsy abdominal lymphadenopathy ordered 3. LDH uric acid tumor markers CEA CA 19?9 in addition to routine labs Thank you 4. Follow-up 2 months. 5. Thank you very much for allowing me to evaluate this patient. Cc: Jameson Tucker MD Electronically signed by: Gucci Padilla MD, DABR 12/19/2024 9:44 AM
== END 2025-01-10 23:59 | disposition home or self-care (01) ==
LOC: SCTC 11:29
PROVIDERS: PCP Family Medicine; Referring Provider Family Medicine; Visit Provider Radiology Therapeutic Radiology
DX: R59.1 Generalized enlarged lymph nodes (principal)
CPT/HCPCS: 36415; 80053; 82378; 85025; 86301; 99213; G0463

== ENCOUNTER 2025-01-11 12:19 | Emergency (ER) | payer MEDICARE, BC, SELFPAY ==
[2025-01-11 12:20] VITALS: BMI 22.8
[2025-01-11 12:29] VITALS: BP 105/67; PULSE 69; RESP 19; TEMP 37; O2SAT 99
--- NOTE | 2025-01-11 12:39 | PD.EDFALL ---
ED Fall Injury RME/HPI General Chief Complaint: Fall Stated Complaint: FALL/LAC FOREHEAD/RIGHT FOREARM Time Seen by Provider: 01/11/25 12:34 Arrival date/time: 01/11/25 12:19 Related Data Home Medications ?Medication ?Instructions ?Recorded ?Confirmed finasteride 5 mg tablet (Proscar) 5 mg PO QDAY #0 tabs 06/21/15 12/23/24 tamsulosin 0.4 mg capsule (Flomax) 0.8 mg PO QDAY ##0 06/21/15 12/23/24 atorvastatin 80 mg tablet 80 mg PO QDAY 07/22/18 12/23/24 clopidogrel 75 mg tablet 75 mg PO DAILY 11/01/23 12/23/24 metoprolol succinate 50 mg 50 mg PO DAILY 11/01/23 12/23/24 tablet,extended release 24 hr nitroglycerin 0.4 mg sublingual 0.4 mg buccal PRN PRN Chest Pain 11/01/23 12/26/24 tablet ranolazine 500 mg tablet,extended 1,000 mg PO DAILY 11/01/23 12/23/24 release,12 hr ezetimibe 10 mg tablet 10 mg PO QDAY 12/23/24 12/23/24 gabapentin 300 mg capsule 300 mg PO TID 12/23/24 12/23/24 hydrocodone 5 mg-acetaminophen 325 1 tab PO Q6H PRN pain 12/23/24 12/23/24 mg tablet Previous Rx's ?Medication ?Instructions ?Recorded meclizine 25 mg tablet 50 mg (2 x 25 mg) PO BID PRN 11/11/24 dizziness #14 tabs amiodarone 200 mg tablet 200 mg PO BID 30 days #60 tabs 12/26/24 apixaban 5 mg tablet 5 mg PO BID 30 days #60 tabs 12/26/24 Allergies Allergy/AdvReac Type Severity Reaction Status Date / Time Penicillins Allergy Severe Vomiting Verified 01/11/25 12:23 Course Quality Measures none Orders Category Date Time Status Discharge Routine Discharge 01/11/25 14:[address] head/brain wo con Stat Exams 01/11/25 12:40 Completed Vital Signs Vital signs: Vital Signs Temperature 98.6 F 01/11/25 12:29 Pulse Rate 69 01/11/25 12:29 Respiratory Rate 19 01/11/25 12:29 Blood Pressure 105/67 01/11/25 12:29 Pulse Oximetry (%) 99 01/11/25 12:29 Oxygen Delivery Method Room Air 01/11/25 12:29 Fall Patient data External records reviewed:: [facility] previous records Clinical information provided by:: patient Social determinants that could affect healthcare access:: none Patient has the following chronic illnesses:: Ankylosing spondylitis How is presenting disease/condition affected by chronic disease/condition?: exacerbated by Evaluation data The following diagnostics were reviewed and interpreted by me:: lab results Lab and/or radiology exams considered but not ordered:: Unremarkable Interpretation Summary: Unremarkable Medications / Prescriptions Medications or Prescriptions considered but not ordered:: None Medication administrations:: Oxycodone Consultations Consultation(s) initiated? (list below): No Diagnosis Fall Differential Diagnosis: syncope, fracture of wrist and concussion with loss of consciousness Most likely diagnosis given after review of the tests above:: Skin avulsion Admission Indicated Admission indicated?: not indicated Admission Request Was there a request for admission?: No Disposition Plan Disposition Plan: Discharge Discharge Attestation Discharge Attestation: The patient and all family members were given an opportunity to ask questions and understood the discharge instructions. Discharge instructions specifically effects, indications for sooner follow up or return to the emergency department, and the expected course of current diagnosis. Patient condition: Stable Discharge Plan Plan Patient Disposition: HOME (Self Care) Patient condition on transfer: Stable Prescriptions/Referrals Prescriptions/Med Rec: No Action tamsulosin [Flomax] 0.4 MG capsule,extended release 24hr 0.8 mg PO QDAY Qty: 0 finasteride [Proscar] 5 MG tablet 5 mg PO QDAY Qty: 0 atorvastatin 80 mg Tablet 80 mg PO QDAY clopidogrel 75 mg tablet 75 mg PO DAILY Patient Comments: TAKE 1 TABLET BY MOUTH ONCE DAILY FOR 90 DAYS nitroglycerin 0.4 mg tablet, sublingual 0.4 mg BUCCAL PRN MDD 3 PRN (Reason: Chest Pain) Patient Comments: DISSOLVE ONE TABLET UNDER THE TONGUE NEEDED FOR CHEST PAIN. DO NOT EXCEED MORE THAN 3 TIMES IN A DAY FOR 25 DAYS. ranolazine 500 mg tablet extended release 12 hr 1,000 mg PO DAILY Patient Comments: TAKE 1 TABLET BY MOUTH TWICE DAILY metoprolol succinate 50 mg tablet extended release 24 hr 50 mg PO DAILY Patient Comments: TAKE 1 TABLET BY MOUTH ONCE DAILY meclizine 25 mg tablet 50 mg PO BID MDD 100 mg PRN (Reason: dizziness) Qty: 14 0RF gabapentin 300 mg capsule 300 mg PO TID Patient Comments: TAKE ONE CAPSULE BY MOUTH THREE TIMES DAILY FOR NERVE PAIN ezetimibe 10 mg tablet 10 mg PO QDAY Patient Comments: TAKE ONE TABLET BY MOUTH EVERY DAY FOR CHOLESTEROL hydrocodone-acetaminophen 5-325 mg tablet 1 tab PO Q6H PRN (Reason: pain) Patient Comments: TAKE ONE TABLET BY MOUTH EVERY 6 HOURS NEEDED FOR PAIN amiodarone 200 mg Tablet 200 mg PO BID 30 Days Qty: 60 2RF apixaban 5 mg tablet 5 mg PO BID 30 Days Qty: 60 3RF Referrals: Jameson Tucker MD [Primary Care Provider] - In 1 week Problem List Clinical Impression: Fall, Avulsion of skin of elbow Patient/Caregiver Discharge Instructions Education Materials: Fall Prevention Assessing Risk, ED Skin Avulsion Print Language: Nicaraguan Stand Alone Forms: [employer]i Award Info., Patient Portal Info Letter
--- NOTE | 2025-01-11 12:40 | XR_ITS ---
Examination: CT brain head without contrast. 2-D sagittal coronal reconstructions Date and time of exam:January 11, 2025 1244 hours Comparison PET/CT scan December 12, 2024 INDICATIONS: Status post fall today with injury to the head, head pain CTDI: vol (mGy):47.4 DLP: (mGycm):994 Technique: Multiple CT axial sections of the brain have been obtained, 5 mm slice thickness. Contrast has not been administered. 2-D sagittal, coronal reconstructions have been obtained Low dose protocols were performed. One or more of the following dose reduction techniques were used; automated exposure control, adjustment of the mA and/or KV according to patient size, use of iterative reconstruction technique. Findings: No significant ventricular enlargement. Intra-axial or extra-axial hemorrhage density is not seen. No mass effect or midline shift Basal cisterns are not remarkable. Fourth ventricle is midline. Cranial vault intact. Impression: Negative for acute hemorrhage, mass effect or midline shift
== END 2025-01-11 14:38 | disposition home or self-care (01) ==
PROVIDERS: Emergency Provider Emergency Medicine; PCP Family Medicine
DX: S51.002A Unspecified open wound of left elbow, initial encounter (principal); S09.90XA Unspecified injury of head, initial encounter; W18.09XA Striking against other object with subsequent fall, initial encounter; Y93.01 Activity, walking, marching and hiking
CPT/HCPCS: 70450; 99284

== ENCOUNTER 2025-01-18 08:31 | Outpatient (CLI) | payer MEDICARE, BC, SELFPAY ==
[2025-01-16 17:13] VITALS: BMI 23.0
[2025-01-17 12:53] LABS: Basophils % (Auto) 0 % (0-2.5); Eosinophils # (Auto) 0.1 Thou/mm3 (0.0-0.5); Eosinophils % (Auto) 1 % (0-10); Hematocrit 32.2 % (41.0-53.0); Hemoglobin 10.5 g/dL (13.5-16.0); Immature Granulocytes % (Auto) 0 % (0-0); Immature Granulocytes Auto 0.02 Thou/mm3 (0.00-0.00); Lymphocytes # (Auto) 0.4 Thou/mm3 (1.0-4.8); Lymphocytes % (Auto) 6 % (10-50); Mean Corpuscular HGB Conc 32.6 g/dl (31.0-37.0); Mean Corpuscular Hemoglobin 28.8 pg (25.0-35.0); Mean Corpuscular Volume 88 fL (80-100); Monocytes # (Auto) 0.8 Thou/mm3 (0.0-0.8); Monocytes % (Auto) 10 % (0-12); Neutrophils # (Auto) 6.2 Thou/mm3 (1.8-7.7); Neutrophils % (Auto) 82 % (37-80); Nucleated Red Blood Cell % 0 /100 WBC (0); Platelet Count 276 Thou/mm3 (140-440); RDW Standard Deviation 54.4 fL (35.1-43.9); Red Blood Count 3.65 Miln/mm3 (4.50-5.90); White Blood Count 7.6 Thou/mm3 (3.8-10.6)
[2025-01-17 13:02] LABS: Blood Urea Nitrogen 15 mg/dL (9-23); Creatinine (Component) 0.8 mg/dL (0.6-1.3); Estimated Creatinine Clearance 64.3 mL/min (>60); eGFR > 60 See Note
[2025-01-17 13:05] LABS: INR 1.2 (0.9-1.3); Partial Thromboplastin Time 33.3 Seconds (22.0-36.0); Prothrombin Time 12.5 Seconds (9.0-12.2)
[2025-01-18] VITALS (10 sets, daily range): BP systolic 101–123; BP diastolic 47–69; PULSE 60–79; RESP 12–21; TEMP 36.3; O2SAT 90–99
--- NOTE | 2025-01-18 09:30 | XR_ITS ---
Examination: CT-guided percutaneous biopsy mesenteric lymph nodes CT abdomen without intravenous contrast Date and time of procedure: January 18, 2025 1038 hours INDICATIONS: PET/CT scan December 12, 2024 periaortic and mesenteric lymphadenopathy Informed consent provided. A timeout was completed verifying correct patient, procedure, site and positioning. Technique: Axial 3 mm sections were obtained for localization of anterior mesenteric lymph nodes Appropriate area is marked. The patient's site was prepped and draped in sterile fashion Maximal sterile barrier technique utilized, including hand hygiene Local anesthesia was obtained with 1% lidocaine. Low dose protocols were performed. One or more of the following dose reduction techniques were used; automated exposure control, adjustment of the mA and/or KV according to patient size, use of iterative reconstruction technique. Utilizing CT guidance for core biopsies obtained of mesenteric lymph nodes. Patient appears in stable condition during this procedure. At completion of the procedure, the patient is in satisfactory condition. Estimated blood loss 4 cc Complete pathology report to follow. Impression: Successful CT-guided percutaneous biopsy anterior mesenteric lymph nodes
[2025-01-18] MEDS: SODIUM CHLORIDE 0.9% 250 ML 250 ML 20 ML IV (10:15)
[2025-01-18] MEDS: fentaNYL CIT INJ 50 mCg/ML AMP 2ML IVP (10:54)
--- NOTE | 2025-01-18 16:30 | PC.NURSE ---
Addendum entered by Rosio Lo RN 01/18/25 16:38: patient use oxygen at home Original Note: 1115 patient is awake, alert, breathing unlabored, dressing to abdomen dry with no bleeding, report received from Kylah BURGESS, patient to recover for 1 hour. Patient may resume Eliquis and plavix wednesday01/20/2025 1222 patient is awake, alert, breathing unlabored, dressing dry with no bleeding, discharge instructions given to patient and family, patient discharged home in wheelchair with all belongings. Pt has coban to left forearm due to cut cobered with gauze and coban. Pt had dressing prior to arriving to hospital today.
== END 2025-01-18 12:22 | disposition home or self-care (01) ==
PROVIDERS: Radiology Diagnostic Radiology; PCP Family Medicine; Referring Provider Radiology Therapeutic Radiology; Visit Provider Radiology Therapeutic Radiology
DX: C77.8 Secondary and unspecified malignant neoplasm of lymph nodes of multiple regions (principal); Z01.812 Encounter for preprocedural laboratory examination
CPT/HCPCS: 38505; 36415; 77012; 82565; 84520; 85025; 85610; 85730; J3010; J7050

== ENCOUNTER 2025-01-25 09:53 | Outpatient (RCR) | payer MEDICARE, BC, SELFPAY ==
--- NOTE | 2025-01-25 10:40 | CTCFLWUP_ITS ---
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 Patient was suspected malignancy chest abdominal region with PET scan 12/12/2024 showing widespread hypermetabolic adenopathy involving para- aortic pericaval mesenteric regions along with right pretracheal and high right pretracheal and right supra Aidan node. Initial biopsy 12/25/2024 while patient was admitted to the hospital revealed caseating granulomatous inflammation with no lymphoid tissue present and negative for fungal elements by GMS special stain and acid-fast for AFB. While patient was admitted patient also had stool culture which revealed no enteric pathogens. This was repeated 01/18/2025 revealing small fragments of fibroblastic tissue with peripheral nerve with no lymphoid tissue identified. Patient still feels tired with weight loss of 4 pounds in the past 3 weeks. Told patient about checking for TB and cocci via lab tests and see patient again in 2 weeks time. Patient to call or go to the ER for worsening symptoms. Electronically signed by: Gucci Padilla M.D. 01/25/2025 10:38 AM
--- NOTE | 2025-02-06 08:19 | CTCFLWUP_ITS ---
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 IgM IgG cocci serology negative, QuantiFERON gold plus for TB negative. Family wishes to have patient evaluated at tertiary hospital for possible open biopsy. [address]-guided biopsy attempts did not reveal any malignancies. Spoke with Dr. Libia Almanza MD [facility] who will see patient. Records to be faxed [phone] and patient's [id number] a contact center specialist will be contacted by . I will also arrange to have PET scan and CT scan on disc for his review at time of pt evaluation. Electronically signed by: Gucci Padilla M.D. 02/06/2025 8:16 AM
== END 2025-02-10 23:59 | disposition home or self-care (01) ==
LOC: SCTC 09:53
PROVIDERS: PCP Family Medicine; Referring Provider Family Medicine; Visit Provider Radiology Therapeutic Radiology
DX: R59.1 Generalized enlarged lymph nodes (principal); R63.4 Abnormal weight loss; Z68.22 Body mass index [BMI] 22.0-22.9, adult
CPT/HCPCS: 99213; G0463

== ENCOUNTER → 2025-01-29 | Outpatient (CLI) | payer MEDICARE, BC, SELFPAY ==
[2025-01-29 10:24] LABS: Quantiferon-TB* See Sep Rpt
[2025-01-29 13:06] LABS: Cocci Serology, IgM Negative (Negative)
[2025-01-30 13:19] LABS: Cocci Serology, IgG Negative (Negative)
== END | disposition home or self-care (01) ==
LOC: SCTO 10:03
PROVIDERS: PCP Family Medicine; Referring Provider Radiology Therapeutic Radiology; Visit Provider Radiology Therapeutic Radiology
DX: C77.8 Secondary and unspecified malignant neoplasm of lymph nodes of multiple regions (principal)
CPT/HCPCS: 36415; 86331; 86480; 86635

== ENCOUNTER 2025-02-02 06:57 | Emergency (ER) | payer MEDICARE, BC, SELFPAY ==
[2025-02-02 06:57] VITALS: BMI 22.7
[2025-02-02 07:16] VITALS: BP 104/69; PULSE 95; RESP 18; TEMP 36.8; O2SAT 95; BMI 22.7
--- NOTE | 2025-02-02 07:20 | XR_ITS ---
Examination: Abdomen AP single view Technique: AP portable supine abdomen, single view Exam date and time: February 02, 2025 0859 hours INDICATIONS: Constipation abdominal pain beginning 4 days ago. FINDINGS: Moderate colonic ileus Moderate stool in the descending colon No obstruction Heavy vascular calcification 14 mm gallstone Aorto iliac endoluminal stent with infrarenal partially calcified abdominal aortic aneurysm which appears to measure up to 8 cm IMPRESSION: Cholelithiasis Recommend CT scan abdomen pelvis post intravenous contrast follow-up to further assess infrarenal abdominal aortic aneurysm
--- NOTE | 2025-02-02 07:20 | EDRME_ITS ---
Rapid Medical Screening Exam E Arrival date/time: 02/02/25 06:57 84-year-old male with a history of hypertension, BPH, presents to the emergency room with a chief complaint of abdominal pain, distention, and constipation x 3 days. I have greeted and performed a focused initial assessment of this patient. A com prehensive ED assessment and evaluation of the patient, analysis of all test results, and completion of the medical decision making process will be conducted by additional ED providers. Chief Complaint: Abdominal Pain Time Seen by Provider: 02/02/25 07:09 Vital signs: Vital Signs Temperature 98.3 F 02/02/25 07:16 Pulse Rate 95 02/02/25 07:16 Respiratory Rate 18 02/02/25 07:16 Blood Pressure 104/69 02/02/25 07:16 Pulse Oximetry (%) 95 02/02/25 07:16 Oxygen Delivery Method Room Air 02/02/25 07:16 Vital signs reviewed by provider: Yes
[2025-02-02 07:48] LABS: Collection Type, Urine Clean Catch; Squamous Epithelial Cell,Urine 0 /hpf (0-5)
[2025-02-02 07:53] LABS: Basophils % (Auto) 0 % (0-2.5); Eosinophils # (Auto) 0.1 Thou/mm3 (0.0-0.5); Eosinophils % (Auto) 1 % (0-10); Hematocrit 36.6 % (41.0-53.0); Hemoglobin 12.2 g/dL (13.5-16.0); Immature Granulocytes % (Auto) 1 % (0-0); Immature Granulocytes Auto 0.05 Thou/mm3 (0.00-0.00); Lymphocytes # (Auto) 0.7 Thou/mm3 (1.0-4.8); Lymphocytes % (Auto) 7 % (10-50); Mean Corpuscular HGB Conc 33.3 g/dl (31.0-37.0); Mean Corpuscular Hemoglobin 28.5 pg (25.0-35.0); Mean Corpuscular Volume 86 fL (80-100); Monocytes # (Auto) 1.1 Thou/mm3 (0.0-0.8); Monocytes % (Auto) 11 % (0-12); Neutrophils # (Auto) 8.6 Thou/mm3 (1.8-7.7); Neutrophils % (Auto) 81 % (37-80); Nucleated Red Blood Cell % 0 /100 WBC (0); Platelet Count 405 Thou/mm3 (140-440); RDW Standard Deviation 52.5 fL (35.1-43.9); Red Blood Count 4.28 Miln/mm3 (4.50-5.90); White Blood Count 10.6 Thou/mm3 (3.8-10.6)
[2025-02-02 08:06] LABS: Amorphous Crystals,Urine Present (Absent); Bilirubin,Urine Negative (Negative); Blood,Urine Negative (Negative); Color,Urine Yellow (Lt Yel-Yel); Glucose, Urine Negative (Negative); Ketones,Urine Trace (Negative); Leukocyte Esterase,Urine Negative (Negative); Nitrite,Urine Negative (Negative); Protein,Urine Trace (Neg - Trace); RBC,Urine 1 /hpf (0-3); Specific Gravity,Urine 1.019 (1.001-1.035); Urobilinogen,Urine Negative mg/dL (0.0-1.0); WBC,Urine 20 /hpf (0-5)
[2025-02-02 08:22] LABS: Alanine Aminotransferase < 7 U/L (10-49); Albumin, Serum 4.4 gm/dL (3.4-4.8); Albumin/Globulin Ratio 1.7 (1.2-2.2); Alkaline Phosphatase 78 U/L (46-116); Anion Gap 10 (7-16); Aspartate Amino Transferase 19 U/L (0-34); BUN/Creatinine Ratio 24 Ratio (12-20); Bilirubin,Total 0.9 mg/dL (0.3-1.2); Blood Urea Nitrogen 19 mg/dL (9-23); Calcium 8.6 mg/dL (8.3-10.6); Calcium (Corrected) 8.6 mg/dL (8.5-10.1); Carbon Dioxide 29.4 mMol/L (20.0-31.0); Chloride 97 mMol/L (98-107); Creatinine (Component) 0.8 mg/dL (0.6-1.3); Estimated Creatinine Clearance 63.9 mL/min (>60); Globulin 2.6 gm/dL (2.3-3.5); Glucose 142 mg/dL (74-106); Lipase 22 U/L (12-53); Osmolality,Calculated 276 (275-295); Potassium 3.8 mMol/L (3.4-5.1); Sodium 136 mMol/L (136-145); eGFR > 60 See Note
[2025-02-02 08:36] VITALS: BP 143/85; PULSE 81; RESP 19; TEMP 36.7; O2SAT 95
--- NOTE | 2025-02-02 09:03 | XR_ITS ---
Examination: CT abdomen and pelvis without contrast. Coronal 3-D reconstructions. Sagittal 2-D reconstructions. Date and time of exam:February 02, 2025 0953 hours INDICATIONS: Constipation no bowel movement beginning 4 days ago COMPARISON: January 18, 2025 CTDI: vol (mGy): 6.12 DLP: (mGycm): 376 Technique: Axial images of the abdomen have been obtained, 3 mm slice thickness Intravenous contrast material has not been administered. Low dose protocols were performed. One or more of the following dose reduction techniques were used; automated exposure control, adjustment of the mA and/or KV according to patient size, use of iterative reconstruction technique. Findings: Aneurysmal dilatation ascending thoracic aorta AP dimension 4.5 cm Heavy calcification left main left anterior descending left circumflex coronary arteries Mild enlargement cardiac contour No visualized liver or splenic lesion Cholelithiasis Suspicious for edema around the pancreatic head on this noncontrast study Spleen not enlarged Renal arterial calcification Subcentimeter left renal calculi in the left renal pelvis No hydronephrosis Aorta iliac stent with infrarenal abdominal aortic aneurysm transverse dimension 5.8 cm No bowel obstruction Significant free fluid in the pelvis Multiple small bladder calculi IMPRESSION: Suspicious for pancreatitis Left renal calculi Aorta iliac stent with infrarenal abdominal aortic aneurysm transverse dimension 5.8 cm Given the free fluid in the pelvis, suggest CTA abdomen pelvis post intravenous contrast follow-up to confirm patency of the aortoiliac stent and intact dyer of the large infrarenal abdominal aortic aneurysm
[2025-02-02 09:06] LABS: Clarity,Urine Cloudy (Clear/Hazy)
[2025-02-02] MEDS: LACTULOSE SYRUP 20 GM/30 ML UDC 30 GM PO ×2 (09:07→13:49)
[2025-02-02] MEDS: SODIUM CHLORIDE 0.9% 1000 ML 1,000 ML 999 ML IV (09:07)
[2025-02-02] MEDS: bisacodyL 10 MG SUPP PR (09:08)
[2025-02-02 10:14] VITALS: BP 136/74; PULSE 71; RESP 18; TEMP 36.6; O2SAT 99
[2025-02-02 12:07] VITALS: BP 130/67; PULSE 65; RESP 17; TEMP 36.3; O2SAT 95
[2025-02-02] MEDS: bisacodyL 5 MG TABEC 10 MG PO (14:03)
--- NOTE | 2025-02-02 14:15 | PD.EDABDPN ---
ED Abdominal Pain RME/HPI General Chief Complaint: Abdominal Pain Stated complaint: CONSTIPATION X4 DAYS Time seen by provider: 02/02/25 07:09 Arrival date/time: 02/02/25 06:57 Limitations: no limitations RME / HPI RME / HPI narrative: 02/02/25 06:57 84-year-old male with a history of hypertension, BPH, presents to the emergency room with a chief complaint of abdominal pain, distention, and constipation x 3 days. I have greeted and performed a focused initial assessment of this patient. A comprehensive ED assessment and evaluation of the patient, analysis of all test results, and completion of the medical decision making process will be conducted by additional ED providers. DR. 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 Padilla, presents to the ED for evaluation of abdominal pain today. Reports pain is located diffusely and rated as mild-moderate. Accompanied by constipation beginning 3 days ago. Reports history of constipation in the past which he usually is able to resolve with stool softeners and laxatives. However, has attempted both at home without relief. Denies fevers, chills, sweats, chest pain, cough, vomiting, or urinary symptoms. Related Data Home Medications ?Medication ?Instructions ?Recorded ?Confirmed finasteride 5 mg tablet (Proscar) 5 mg PO QDAY #0 tabs 06/21/15 01/18/25 tamsulosin 0.4 mg capsule (Flomax) 0.4 mg PO QDAY ##0 06/21/15 01/18/25 atorvastatin 80 mg tablet 80 mg PO QDAY 07/22/18 01/18/25 clopidogrel 75 mg tablet 75 mg PO DAILY 11/01/23 01/18/25 Held on 01/18/25. Instructions: Resume on 01/20/25. hold plavix until Wednesday01/20/2025 metoprolol succinate 50 mg 50 mg PO DAILY 11/01/23 01/18/25 tablet,extended release 24 hr nitroglycerin 0.4 mg sublingual 0.4 mg buccal PRN PRN Chest Pain 11/01/23 01/18/25 tablet ranolazine 500 mg tablet,extended 1,000 mg PO DAILY 11/01/23 01/18/25 release,12 hr ezetimibe 10 mg tablet 10 mg PO QDAY 12/23/24 01/18/25 gabapentin 300 mg capsule 300 mg PO TID 12/23/24 01/18/25 hydrocodone 5 mg-acetaminophen 325 1 tab PO Q6H PRN pain 12/23/24 01/18/25 mg tablet meclizine 25 mg tablet 25 mg PO BID PRN dizziness 01/18/25 01/18/25 oxycodone-acetaminophen 5 mg-325 2 tab PO Q12H PRN pain 01/18/25 01/18/25 mg tablet Previous Rx's ?Medication ?Instructions ?Recorded amiodarone 200 mg tablet 200 mg PO BID 30 days #60 tabs 12/26/24 apixaban 5 mg tablet 5 mg PO BID 30 days #60 tabs 12/26/24 Held on 01/18/25. Instructions: Resume on 01/20/25. hold eliquis until Wednesday01/20/2025 bisacodyl 5 mg tablet,delayed 5 mg PO BID constipation #20 tabs 02/02/25 release (Dulcolax (bisacodyl)) lactulose 10 gram/15 mL oral 30 g (45 mL) PO BID constipation 02/02/25 solution #1,500 mL Allergies Allergy/AdvReac Type Severity Reaction Status Date / Time Penicillins Allergy Severe Vomiting Verified 02/02/25 07:00 Review of Systems Review of Systems Narrative Review of Systems: GEN: No fever, no chills, no weight loss EYES: No discharge, no visual changes, no pain HEENT: No ear pain, no congestion, no sore throat PULM: No shortness of breath, no cough, no congestion CV: No chest pain, no dyspnea on exertion, no palpitations GI: No nausea, no vomiting, no diarrhea, + pain, + constipation : No frequency, no urgency and no dysuria MUSC/SKEL No joint pain, no back pain SKIN: No rash NEURO: No weakness, no headache Past Medical History Past Medical History CARDIAC: Positive Atrial Fibrillation, Coronary Artery Disease, Hypercholesterolemia and Hypertension RESPIRATORY: Positive Chronic Obstructive Pulmonary Disease (COPD) (ex smoker) GENITOURINARY: Positive Genitourinary Disorders and Benign Prostatic Hyperplasia MUSCULOSKELETAL: Positive Musculoskeletal Disorders ENDOCRINE: Positive Diabetes Mellitus Type 2 PSYCHO/SOCIAL: Positive Depression and Anxiety OTHER HISTORY: Positive Hospitalization, Falls, Blood Transfusions, Chemotherapy, Radiation Therapy and Cancer Surgical History SURGICAL: Positive Cardiac Surgery, Coronary Artery Bypass Graft, Coronary Stent and Angiogram Social History SMOKING STATUS: Never smoker ED Exam General Limitations: Present no limitations General appearance: Present alert and in no apparent distress Head Head exam: Present atraumatic, normocephalic and normal inspection Eye Eye exam: Present normal appearance, PERRL and EOMI ENT ENT exam: Present normal exam, normal oropharynx and mucous membranes moist Neck Neck exam: Present normal inspection, full ROM and trachea midline Chest Chest inspection: Present normal inspection and symmetric chest wall rise Respiratory Respiratory exam: Present normal lung sounds bilaterally Cardiovascular Cardiovascular exam: Present regular rate, normal rhythm and normal heart sounds Abdominal Exam Abdominal exam: Present soft and normal bowel sounds Extremities Exam Extremities exam: Present normal inspection and full ROM Back Exam Back exam: Present normal inspection and full ROM Neurological Exam Neurological exam: Present alert, oriented X3 and CN II-XII intact Psychiatric Psychiatric exam: Present normal affect and normal mood Skin Skin exam: Present warm, dry, intact and normal color Course Quality Measures none Orders Category Date Time Status CT abdomen pelvis wo con Stat Exams 02/02/25 09:03 Completed XR abdomen 1V Stat Exams 02/02/25 07:20 Completed CBC Stat Lab 02/02/25 07:45 Completed CMP [Comprehensive Metabolic Panel] Stat Lab 02/02/25 07:45 Completed Lipase Stat Lab 02/02/25 07:45 Completed UA [Urinalysis] Stat Lab 02/02/25 07:43 Completed Urine Culture Stat Lab 02/02/25 07:43 Received Lactulose Syrup [Enulose Syrup] Med 02/02/25 08:41 Discontinued 30 gm PO X1 ONE Lactulose Syrup [Enulose Syrup] Med 02/02/25 13:17 Discontinued 30 gm PO X1 ONE Sodium Chloride 0.9% 1000 ml [Ns] 1,000 ml Med 02/02/25 08:41 Discontinued IV 999 mls/hr bisacodyL [Dulcolax Supp] Med 02/02/25 08:41 Discontinued 10 mg [place] X1 ONE bisacodyL [Dulcolax] Med 02/02/25 13:17 Discontinued 10 mg PO X1 ONE Vital Signs Vital signs: Vital Signs Temperature 98.3 F 02/02/25 07:16 Pulse Rate 95 02/02/25 07:16 Respiratory Rate 18 02/02/25 07:16 Blood Pressure 104/69 02/02/25 07:16 Pulse Oximetry (%) 95 02/02/25 07:16 Oxygen Delivery Method Room Air 02/02/25 07:16 Pulse ox is 95% on room air which is adequate. Abdominal Pain MDM MDM Narrative MDM Narrative:: Leela Dinero am scribing for and in the presence of Dr. Sharma. Patient remains clinically stable throughout the emergency department visit. We reviewed all the results, analysis, and treatment plans. Patient is amenable to discharge. Strict return precautions were outlined. Patient was discharged in stable condition. 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 How is presenting disease/condition affected by chronic disease/condition?: exacerbated by Evaluation data The following diagnostics were reviewed and interpreted by me:: lab results and radiology exam(s) Lab and/or radiology exams considered but not ordered:: None Interpretation Summary: Ordering Physician: Humza Puente Date of Service: 02/02/25 Procedure(s): XR abdomen 1V Accession Number(s): [id number] cc: Jameson Tucker MD; Humza Puente; Sanjay Soto MD~ Examination: Abdomen AP single view Technique: AP portable supine abdomen, single view Exam date and time: February 02, 2025 0859 hours INDICATIONS: Constipation abdominal pain beginning 4 days ago. FINDINGS: Moderate colonic ileus Moderate stool in the descending colon No obstruction Heavy vascular calcification 14 mm gallstone Aorto iliac endoluminal stent with infrarenal partially calcified abdominal aortic aneurysm which appears to measure up to 8 cm IMPRESSION: Cholelithiasis Recommend CT scan abdomen pelvis post intravenous contrast follow-up to further assess infrarenal abdominal aortic aneurysm Dictated By: Sanjay Soto MD Signed By: <Electronically signed by Sanjay Soto MD in OV> 02/02/25 0901 Ordering Physician: Adi Sharma MD Date of Service: 02/02/25 Procedure(s): CT abdomen pelvis wo [facility] Accession Number(s): [id number] cc: Adi Sharma MD; Jameson Tucker MD; Sanjay Soto MD~ Examination: CT abdomen and pelvis without contrast. Coronal 3-D reconstructions. Sagittal 2-D reconstructions. Date and time of exam:February 02, 2025 0953 hours INDICATIONS: Constipation no bowel movement beginning 4 days ago COMPARISON: January 18, 2025 CTDI: vol (mGy): 6.12 DLP: (mGycm): 376 Technique: Axial images of the abdomen have been obtained, 3 mm slice thickness Intravenous contrast material has not been administered. Low dose protocols were performed. One or more of the following dose reduction techniques were used; automated exposure control, adjustment of the mA and/or KV according to patient size, use of iterative reconstruction technique. Findings: Aneurysmal dilatation ascending thoracic aorta AP dimension 4.5 cm Heavy calcification left main left anterior descending left circumflex coronary arteries Mild enlargement cardiac contour No visualized liver or splenic lesion Cholelithiasis Suspicious for edema around the pancreatic head on this noncontrast study Spleen not enlarged Renal arterial calcification Subcentimeter left renal calculi in the left renal pelvis No hydronephrosis Aorta iliac stent with infrarenal abdominal aortic aneurysm transverse dimension 5.8 cm No bowel obstruction Significant free fluid in the pelvis Multiple small bladder calculi IMPRESSION: Suspicious for pancreatitis Left renal calculi Aorta iliac stent with infrarenal abdominal aortic aneurysm transverse dimension 5.8 cm Given the free fluid in the pelvis, suggest CTA abdomen pelvis post intravenous contrast follow-up to confirm patency of the aortoiliac stent and intact dyer of the large infrarenal abdominal aortic aneurysm Dictated By: Sanjay Soto MD Signed By: <Electronically signed by Sanjay Soto MD in OV> 02/02/25 1017 Medications / Prescriptions Medications or Prescriptions considered but not ordered:: None Medication administrations:: Medication Administration History Discontinued Medications Bisacodyl (Bisacodyl 10 Mg Supp) 10 mg [place] X1 ONE; Protocol Stop: 02/02/25 08:42 Last Admin: 02/02/25 09:08 Dose: 10 mg Documented By: EF Bisacodyl (Bisacodyl 5 Mg Tabec) 10 mg PO X1 ONE; Protocol Stop: 02/02/25 13:18 Last Admin: 02/02/25 14:03 Dose: 10 mg Documented By: EF Sodium Chloride (Ns) 1,000 mls @ 999 mls/hr IV .Q1H1M ONE Stop: 02/02/25 09:41 Last Infusion: 02/02/25 10:08 Dose: Infused Documented By: Admin: 02/02/25 09:07 Dose: 999 mls/hr Documented By: EF Lactulose (Lactulose Syrup 20 Gm/30 Ml Udc) 30 gm PO X1 ONE; Protocol Stop: 02/02/25 08:42 Last Admin: 02/02/25 09:07 Dose: 30 gm Documented By: EF Lactulose (Lactulose Syrup 20 Gm/30 Ml Udc) 30 gm PO X1 ONE; Protocol Stop: 02/02/25 13:18 Last Admin: 02/02/25 13:49 Dose: 30 gm Documented By: EH See above Consultations Consultation(s) initiated? (list below): No Diagnosis Differential diagnosis abdominal pain: abdominal pain, calculus of kidney, constipation, diverticulitis and small bowel obstruction Most likely diagnosis given after review of the tests above:: Constipation Admission Indicated Admission indicated?: not indicated Admission Request Was there a request for admission?: No Disposition Plan Disposition Plan: Discharge Discharge Attestation Discharge Attestation: The patient and all family members were given an opportunity to ask questions and understood the discharge instructions. Discharge instructions specifically effects, indications for sooner follow up or return to the emergency department, and the expected course of current diagnosis. Patient condition: Stable Discharge Plan Plan Patient Disposition: HOME (Self Care) Prescriptions/Referrals Prescriptions/Med Rec: New lactulose 10 gram/15 mL solution 30 g PO BID MDD 60 ml Qty: 1500 0RF bisacodyl [Dulcolax (bisacodyl)] 5 mg tablet,delayed release (DR/EC) 5 mg PO BID MDD 3 Qty: 20 0RF No Action tamsulosin [Flomax] 0.4 MG capsule,extended release 24hr 0.4 mg PO QDAY Qty: 0 finasteride [Proscar] 5 MG tablet 5 mg PO QDAY Qty: 0 atorvastatin 80 mg Tablet 80 mg PO QDAY clopidogrel 75 mg tablet 75 mg PO DAILY Patient Comments: TAKE 1 TABLET BY MOUTH ONCE DAILY FOR 90 DAYS nitroglycerin 0.4 mg tablet, sublingual 0.4 mg BUCCAL PRN MDD 3 PRN (Reason: Chest Pain) Patient Comments: DISSOLVE ONE TABLET UNDER THE TONGUE NEEDED FOR CHEST PAIN. DO NOT EXCEED MORE THAN 3 TIMES IN A DAY FOR 25 DAYS. ranolazine 500 mg tablet extended release 12 hr 1,000 mg PO DAILY Patient Comments: TAKE 1 TABLET BY MOUTH TWICE DAILY metoprolol succinate 50 mg tablet extended release 24 hr 50 mg PO DAILY Patient Comments: TAKE 1 TABLET BY MOUTH ONCE DAILY oxycodone-acetaminophen 5-325 mg tablet 2 tab PO Q12H PRN (Reason: pain) meclizine 25 mg tablet 25 mg PO BID MDD 100 mg PRN (Reason: dizziness) gabapentin 300 mg capsule 300 mg PO TID Patient Comments: TAKE ONE CAPSULE BY MOUTH THREE TIMES DAILY FOR NERVE PAIN ezetimibe 10 mg tablet 10 mg PO QDAY Patient Comments: TAKE ONE TABLET BY MOUTH EVERY DAY FOR CHOLESTEROL hydrocodone-acetaminophen 5-325 mg tablet 1 tab PO Q6H PRN (Reason: pain) Patient Comments: TAKE ONE TABLET BY MOUTH EVERY 6 HOURS NEEDED FOR PAIN amiodarone 200 mg Tablet 200 mg PO BID 30 Days Qty: 60 2RF apixaban 5 mg tablet 5 mg PO BID 30 Days Qty: 60 3RF Referrals: Jameson Tucker MD [Primary Care Provider] - In 1 week Problem List Clinical Impression: Constipation Patient/Caregiver Discharge Instructions Education Materials: ED Constipation (Adult) Additional Instructions: Follow-up with your oncologist within 2-3 days for recheck. You can return to the emergency department sooner if symptoms worsen or if you notice any new, concerning issues. Print Language: Slovenian Stand Alone Forms: [employer] Award Info., Patient Portal Info Letter
[2025-02-02 14:25] VITALS: BP 139/63; PULSE 77; RESP 19; TEMP 37.4; O2SAT 95
== END 2025-02-02 14:41 | disposition home or self-care (01) ==
PROVIDERS: Nurse Practitioner Family; Emergency Provider Family Medicine; PCP Family Medicine
DX: K59.00 Constipation, unspecified (principal); N20.0 Calculus of kidney; I71.43 Infrarenal abdominal aortic aneurysm, without rupture; K80.20 Calculus of gallbladder without cholecystitis without obstruction; Z95.1 Presence of aortocoronary bypass graft; Z79.02 Long term (current) use of antithrombotics/antiplatelets
CPT/HCPCS: 36415; 74018; 74176; 80053; 81001; 83690; 85025; 87086; 96360; 99284; J7030; A9270

== ENCOUNTER → 2025-02-23 | Outpatient (CLI) | payer MEDICARE, BC, SELFPAY ==
--- NOTE | 2025-02-23 13:00 | XR_ITS ---
Examination: CTA chest, with intravenous contrast. CTA abdomen, with intravenous contrast. CTA pelvis, with intravenous contrast. 2-D sagittal and coronal reconstructions. 3-D reconstructions. Date and time of exam: February 23, 2025 1305 hours Comparison February 02, 2025 CTDI vol (mgy) 6.96 DLP (MGycm) 559 Technique: Multiple CTA images, 2.0 mm slice thickness, obtained chest, abdomen, pelvis, with the high-resolution 64 slice scanner. 2-D sagittal coronal reconstructions 3-D reconstructions 3-D post processing including maximum intensity projection images Low dose protocols, adjustment MA KV according to patient size FINDINGS: AP dimension ascending thoracic aorta 4.7 cm No thoracic aortic dissection Pulmonary artery segments are not enlarged No pulmonary artery filling defects At least 25 subcentimeter soft pulmonary nodules No lobar pneumonia No pleural disease No focal liver or splenic lesions Minimal fluid subcapsular to the spleen Cholelithiasis Pancreatic duct is not dilated No definite common bile duct stones Infrarenal abdominal aortic aneurysm AP dimension 5.0 cm, mediolateral dimension 4.6 cm There is a small contrast accumulation 8 mm at the posterior margin of the aneurysm, axial image 228, clinical correlation advised The aorta iliac stent is patent No bowel obstruction There is moderate free fluid in the pelvis Urinary bladder is intact IMPRESSION: Aneurysmal dilatation ascending thoracic aorta 4.7 cm, no thoracic aortic dissection Multiple subcentimeter pulmonary nodules, recommend 3 month follow-up CT chest without contrast Infrarenal abdominal aortic aneurysm AP dimension 5.0 cm mediolateral dimension 4.6 cm 8mm contrast accumulation at the posterior margin of the aneurysm, axial image 228, which may connect to the right endoluminal stent axial image 233, consider very small low-grade leak from the right aorto iliac stent, the appearance should be clinically correlated and assessed by the vascular surgeon
== END | disposition home or self-care (01) ==
LOC: SCAT 12:31
PROVIDERS: PCP Family Medicine; Referring Provider Radiology Therapeutic Radiology; Visit Provider Radiology Therapeutic Radiology
DX: I71.43 Infrarenal abdominal aortic aneurysm, without rupture (principal); C77.8 Secondary and unspecified malignant neoplasm of lymph nodes of multiple regions; R91.8 Other nonspecific abnormal finding of lung field
CPT/HCPCS: 71275; 74174; A4649; Q9967